=== PATIENT | male | born 1950 | race Caucasian/White ===

== ENCOUNTER 2021-05-24 14:38 | Inpatient (IN) | payer MEDICARE, MEDICAID ==
[~2021-05-24] VITALS: Ht 180.3 cm; Wt 102.7 kg
[~2021-05-24 14:38] MED LIST: ATOR10TA70 PO; CHLO4TAB PO; COR3.125T PO; DILT30TA2 PO; FINA5TAB11 PO; LATA2.5D14 EACHEYE; LISI2.5T14 PO; TERA5CAP4 PO
[2021-05-24 15:34] LABS: BASOPHILS % (AUTO) 0.3 % (0-1); EOSINOPHILS % (AUTO) 0.5 % (0-6); HEMATOCRIT 30.7 % (42.0-52.0); HEMOGLOBIN 10.5 g/dl (14.0-17.9); LYMPHOCYTES # (AUTO) 0.8 X10'3 (1.1-4.8); LYMPHOCYTES % (AUTO) 10.3 % (21-51); MEAN CORPUSCULAR HEMOGLOBIN 32.2 PG (27.0-31.0); MEAN CORPUSCULAR HGB CONC 34.2 g/dL (33.0-36.5); MEAN CORPUSCULAR VOLUME 94.1 FL (78-98); MEAN PLATELET VOLUME 6.9 FL (7.4-10.4); MONOCYTES # (AUTO) 0.7 X10'3 (0-0.9); MONOCYTES % (AUTO) 8.6 % (2-12); NEUTROPHILS # (AUTO) 6.4 X10'3 (1.8-7.7); NEUTROPHILS % (AUTO) 80.3 % (42-75); PLATELET COUNT 395 X10'3 (140-440); RED BLOOD COUNT 3.27 X10'6 (4.70-6.10); RED CELL DISTRIBUTION WIDTH 13.3 % (11.5-14.5)
[2021-05-24 15:35] LABS: ALANINE AMINOTRANSFERASE 38 U/L (12-78); ALBUMIN 2.3 G/DL (3.4-5.0); ALBUMIN/GLOBULIN RATIO 0.5 (1.1-1.5); ALKALINE PHOSPHATASE 93 IU/L (46-116); ANION GAP 12 (8-16); ASPARTATE AMINO TRANSFERASE 31 U/L (10-37); BILIRUBIN,TOTAL 0.6 MG/DL (0.1-1.0); BLOOD UREA NITROGEN 25 MG/DL (7-18); BUN/CREATININE RATIO 13.1 (5.4-32.0); CALCIUM 8.7 MG/DL (8.5-10.1); CHLORIDE 95 MMOL/L (99-107); CREATININE 1.91 MG/DL (0.60-1.10); GLUCOSE 189 MG/DL (70-104); POTASSIUM 4.6 MMOL/L (3.5-5.1); SODIUM 129 MMOL/L (135-145); TOTAL CARBON DIOXIDE 22.1 MMOL/L (24-32); TOTAL PROTEIN 7.3 G/DL (6.4-8.2); eGFR 35 ML/MIN
[2021-05-24] MEDS ORDERED: CARV3.123 PO (19:12)
[2021-05-24] MEDS ORDERED: DILT30TA PO (19:12)
[2021-05-24] MEDS ORDERED: LISI2.5T89 PO (19:12)
[2021-05-24] MEDS ORDERED: TIMO5DRO4 EACHEYE (19:26)
[2021-05-24] MEDS ORDERED: [UNRECOGNIZED DRUG - CODE] PO (19:26)
[2021-05-24] MEDS ORDERED: carVEDilol 3.125mg tablet PO ONE ×2 (20:00→21:30)
[2021-05-24] MEDS ORDERED: carVEDilol 3.125mg tablet PO SCH (20:00)
[2021-05-24] MEDS ORDERED: LIDOcaine 1% W/epiNEPHrine 1:100,000 20ml vial SQ ONE (21:30)
[2021-05-24] MEDS ORDERED: diltiazem 5mg/ml 5ml inj. IV ONE (21:40)
[2021-05-24] MEDS ORDERED: diltiazem SR 60mg capsule (twice daily) PO SCH (21:40)
[2021-05-24] MEDS ORDERED: diltiazem SR 60mg capsule (twice daily) PO ONE (21:40)
[2021-05-24] MEDS ORDERED: diltiazem 30mg tablet PO ONE (21:50)
--- NOTE | 2021-05-24 21:53 | NUR ---
MD at bedside for thoracentesis - see MAR and VS for diltiazem intervention - will CTM
[2021-05-24] MEDS ORDERED: glucagon, human recombinant 1mg kit SUBCUT PRN (23:05)
[2021-05-24] MEDS ORDERED: ondansetron/PF 4mg/2ml inj IV PRN (23:05)
[2021-05-24] MEDS ORDERED: dextrose ORAL solution 15 GM/59 ML bottle PO PRN ×2 (23:05)
[2021-05-24] MEDS ORDERED: acetaminophen 325mg tablet PO PRN (23:05)
[2021-05-24] MEDS ORDERED: magnesium 2GM in 50ml NS 50 ML IV PRN (23:05)
[2021-05-24] MEDS ORDERED: potassium Cl 20 mEq SR tablet PO PRN ×2 (23:05)
[2021-05-24] MEDS ORDERED: dextrose 50%-water 50ml dispensing syringe IV PRN ×2 (23:05)
[2021-05-24] MEDS ORDERED: HYDROcodone/acetaminophen 5mg/325mg tablet PO PRN (23:05)
[2021-05-24] MEDS ORDERED: MESSAGE TO PHARMACY PO ONE (23:05)
[2021-05-24] MEDS ORDERED: potassium CL 10mEq/100ml bag 100 ML IV PRN (23:05)
[2021-05-24] MEDS ORDERED: magnesium 4gm in 100ml NS 100 ML IV PRN (23:05)
[2021-05-24] MEDS ORDERED: magnesium Cl slow-release 64mg tablet PO PRN (23:05)
[2021-05-24] MEDS ORDERED: chlorpheniramine 4mg tablet PO PRN (23:10)
[2021-05-24] MEDS ORDERED: TIMO1DRO8 EACHEYE (23:18)
[2021-05-24 23:21] LABS: BFAPPEAR CLOUDY; LYMPHOCYTES,BODY FLUID 81 %; MONOCYTES,BODY FLUID 5 %; NEUTROPHILS,BODY FLUID 14 %
[2021-05-24 23:22] LABS: BF RBC COUNT 5700 /CU MM; BF WBC COUNT 230 /CU MM (0-1000); BFCOLOR YELLOW; BFVOLUME 80 ML
[2021-05-24] MEDS ORDERED: TYPE IN GENERIC & BRAND NAME OF PATIENT MED STRENGTH & FORM PO PRN (23:30)
[2021-05-24] MEDS: normal saline 1000ml 1,000 ML IV SCH (23:37)
[2021-05-24 23:45] LABS: GLUCOSE,BODY FLUID 108 MG/DL; TOTAL PROTEIN,BODY FLUID 3.3 G/DL
--- NOTE | 2021-05-25 01:50 | NUR ---
discussed with MD patient HR back into 120's. pt is calm and denies pain or SHOB. Will CTM monitor 1 hour to see if oral diltiazem takes over and reasses for possible lopressor need.
[2021-05-25] MEDS ORDERED: metoprolol tartrate 1mg/ml inj IV ONE (03:05)
[2021-05-25 04:03] LABS: BASOPHILS % (AUTO) 0.4 % (0-1); EOSINOPHILS % (AUTO) 0.1 % (0-6); HEMATOCRIT 29.3 % (42.0-52.0); LYMPHOCYTES # (AUTO) 0.8 X10'3 (1.1-4.8); LYMPHOCYTES % (AUTO) 9.4 % (21-51); MEAN CORPUSCULAR HEMOGLOBIN 32.1 PG (27.0-31.0); MEAN CORPUSCULAR HGB CONC 34.1 g/dL (33.0-36.5); MEAN CORPUSCULAR VOLUME 94.2 FL (78-98); MONOCYTES # (AUTO) 0.6 X10'3 (0-0.9); MONOCYTES % (AUTO) 6.9 % (2-12); NEUTROPHILS # (AUTO) 7.5 X10'3 (1.8-7.7); NEUTROPHILS % (AUTO) 83.2 % (42-75); PLATELET COUNT 358 X10'3 (140-440); RED BLOOD COUNT 3.11 X10'6 (4.70-6.10); RED CELL DISTRIBUTION WIDTH 13.2 % (11.5-14.5)
[2021-05-25 04:15] LABS: ALANINE AMINOTRANSFERASE 38 U/L (12-78); ALBUMIN 2.1 G/DL (3.4-5.0); ALBUMIN/GLOBULIN RATIO 0.4 (1.1-1.5); ALKALINE PHOSPHATASE 88 IU/L (46-116); ANION GAP 10 (8-16); ASPARTATE AMINO TRANSFERASE 31 U/L (10-37); BILIRUBIN,TOTAL 0.7 MG/DL (0.1-1.0); BLOOD UREA NITROGEN 27 MG/DL (7-18); BUN/CREATININE RATIO 14.9 (5.4-32.0); CALCIUM 8.8 MG/DL (8.5-10.1); CHLORIDE 98 MMOL/L (99-107); CREATININE 1.81 MG/DL (0.60-1.10); GLUCOSE 142 MG/DL (70-104); POTASSIUM 4.7 MMOL/L (3.5-5.1); SODIUM 131 MMOL/L (135-145); TOTAL CARBON DIOXIDE 23.4 MMOL/L (24-32); TOTAL PROTEIN 6.8 G/DL (6.4-8.2); eGFR 37 ML/MIN
[2021-05-25 04:17] LABS: MAGNESIUM 2.5 MG/DL (1.5-2.4)
[2021-05-25] MEDS ORDERED: diltiazem 30mg tablet PO SCH (08:00)
[2021-05-25] MEDS: K and/or MAG REPLACEMENT MC SCH ×2 (08:00→20:00)
[2021-05-25] MEDS: docusate sod 100mg capsule PO SCH ×2 (08:18→22:16)
[2021-05-25] MEDS: lisinopril 2.5mg tablet PO SCH (08:19)
[2021-05-25] MEDS: carVEDilol 3.125mg tablet PO SCH ×2 (08:19→20:00)
[2021-05-25] MEDS: atorvastatin 10mg tablet PO SCH (08:19)
[2021-05-25] MEDS: finasteride 5mg tablet PO SCH (08:19)
--- NOTE | 2021-05-25 11:39 | NUR ---
SPOKE WITH DR MARIN ABOUT PT BP GIVEN ORDERS FOR 250 BOLUS
--- NOTE | 2021-05-25 12:37 | NUR ---
Patient assisted to sitting position on side of bed. Patient denies needs at this time.
[2021-05-25 15:31] VITALS: BP 103/79
--- NOTE | 2021-05-25 15:39 | NUR ---
PAGER ID: [phone] MESSAGE: mikala canseco [phone] re: [facility]. May pt eat? thank you.
[2021-05-25] MEDS: diltiazem 30mg tablet PO SCH ×2 (16:17→21:00)
--- NOTE | 2021-05-25 18:36 | NUR ---
Problems reprioritized. Patient report given, questions answered & plan of care reviewed with GIOVANNI PORTILLO.
[2021-05-25 20:00] VITALS: BP 98/59
[2021-05-25] MEDS: terazosin 5mg capsule PO SCH (20:00)
[2021-05-25] MEDS: latanoprost 0.005% 2.5ml ophthalmic drops EACHEYE SCH (22:17)
[2021-05-26] MEDS: timolol 0.5% ophthalmic solution 5ml bottle EACHEYE SCH ×4 (00:23→20:47)
--- NOTE | 2021-05-26 01:45 | NUR ---
Informed Dr. Meza of patient's BP being low and HR being in the 120's. Advised to give Carvedilol 3.125mg that was held.
[2021-05-26] MEDS: carVEDilol 3.125mg tablet PO SCH ×3 (01:49→20:47)
[2021-05-26 05:00] VITALS: BP 90/69
[2021-05-26 06:27] LABS: BASOPHILS % (AUTO) 0.4 % (0-1); EOSINOPHILS # (AUTO) 0.2 X10'3 (0-0.9); HEMATOCRIT 31.5 % (42.0-52.0); HEMOGLOBIN 10.5 g/dl (14.0-17.9); LYMPHOCYTES % (AUTO) 11.7 % (21-51); MEAN CORPUSCULAR HEMOGLOBIN 31.9 PG (27.0-31.0); MEAN CORPUSCULAR HGB CONC 33.3 g/dL (33.0-36.5); MEAN CORPUSCULAR VOLUME 95.6 FL (78-98); MEAN PLATELET VOLUME 7.2 FL (7.4-10.4); MONOCYTES # (AUTO) 0.8 X10'3 (0-0.9); MONOCYTES % (AUTO) 9.2 % (2-12); NEUTROPHILS # (AUTO) 6.4 X10'3 (1.8-7.7); NEUTROPHILS % (AUTO) 76.7 % (42-75); PLATELET COUNT 383 X10'3 (140-440); RED BLOOD COUNT 3.29 X10'6 (4.70-6.10); RED CELL DISTRIBUTION WIDTH 13.4 % (11.5-14.5); WHITE BLOOD COUNT 8.4 X10'3 (4.5-11.0)
[2021-05-26 06:36] LABS: ALANINE AMINOTRANSFERASE 48 U/L (12-78); ALBUMIN 2.1 G/DL (3.4-5.0); ALBUMIN/GLOBULIN RATIO 0.4 (1.1-1.5); ALKALINE PHOSPHATASE 93 IU/L (46-116); ANION GAP 13 (8-16); ASPARTATE AMINO TRANSFERASE 41 U/L (10-37); BILIRUBIN,TOTAL 0.6 MG/DL (0.1-1.0); BLOOD UREA NITROGEN 29 MG/DL (7-18); BUN/CREATININE RATIO 16.2 (5.4-32.0); CALCIUM 8.5 MG/DL (8.5-10.1); CHLORIDE 99 MMOL/L (99-107); CREATININE 1.79 MG/DL (0.60-1.10); GLUCOSE 124 MG/DL (70-104); MAGNESIUM 2.4 MG/DL (1.5-2.4); POTASSIUM 4.8 MMOL/L (3.5-5.1); SODIUM 133 MMOL/L (135-145); TOTAL CARBON DIOXIDE 21.5 MMOL/L (24-32); TOTAL PROTEIN 6.8 G/DL (6.4-8.2); eGFR 38 ML/MIN
[2021-05-26 07:00] VITALS: BP 90/56
[2021-05-26] MEDS: lisinopril 2.5mg tablet PO SCH (08:00)
[2021-05-26] MEDS: K and/or MAG REPLACEMENT MC SCH ×2 (08:00→20:00)
[2021-05-26] MEDS: terazosin 5mg capsule PO SCH ×2 (08:00→20:00)
[2021-05-26] MEDS: docusate sod 100mg capsule PO SCH ×2 (08:30→20:47)
[2021-05-26] MEDS: finasteride 5mg tablet PO SCH (08:31)
[2021-05-26] MEDS: atorvastatin 10mg tablet PO SCH (08:34)
[2021-05-26] MEDS: magnesium hydroxide 30ml (MOM) UD suspension PO PRN (08:34)
[2021-05-26] MEDS: diltiazem 30mg tablet PO SCH ×4 (08:35→20:51)
[2021-05-26 11:00] VITALS: BP 89/60
[2021-05-26] MEDS: normal saline 1000ml 1,000 ML IV SCH (17:21)
[2021-05-26] MEDS: latanoprost 0.005% 2.5ml ophthalmic drops EACHEYE SCH (20:47)
[2021-05-27] VITALS (29 sets, daily range): BP systolic 78–105; BP diastolic 46–77
[2021-05-27 07:30] LABS: APTT 29 SECONDS (22-32)
[2021-05-27 07:31] LABS: ALANINE AMINOTRANSFERASE 42 U/L (12-78); ALBUMIN/GLOBULIN RATIO 0.4 (1.1-1.5); ALKALINE PHOSPHATASE 85 IU/L (46-116); ANION GAP 10 (8-16); ASPARTATE AMINO TRANSFERASE 28 U/L (10-37); BILIRUBIN,TOTAL 0.5 MG/DL (0.1-1.0); BLOOD UREA NITROGEN 28 MG/DL (7-18); BUN/CREATININE RATIO 16.2 (5.4-32.0); CALCIUM 8.6 MG/DL (8.5-10.1); CHLORIDE 102 MMOL/L (99-107); CREATININE 1.73 MG/DL (0.60-1.10); GLUCOSE 120 MG/DL (70-104); MAGNESIUM 2.5 MG/DL (1.5-2.4); POTASSIUM 4.3 MMOL/L (3.5-5.1); SODIUM 136 MMOL/L (135-145); TOTAL CARBON DIOXIDE 24.2 MMOL/L (24-32); TOTAL PROTEIN 6.5 G/DL (6.4-8.2); eGFR 39 ML/MIN
[2021-05-27 07:49] LABS: BASOPHILS % (AUTO) 0.6 % (0-1); EOSINOPHILS # (AUTO) 0.2 X10'3 (0-0.9); EOSINOPHILS % (AUTO) 2.8 % (0-6); HEMATOCRIT 29.5 % (42.0-52.0); HEMOGLOBIN 9.8 g/dl (14.0-17.9); LYMPHOCYTES # (AUTO) 0.8 X10'3 (1.1-4.8); LYMPHOCYTES % (AUTO) 11.3 % (21-51); MEAN CORPUSCULAR HEMOGLOBIN 31.7 PG (27.0-31.0); MEAN CORPUSCULAR HGB CONC 33.4 g/dL (33.0-36.5); MEAN PLATELET VOLUME 7.3 FL (7.4-10.4); MONOCYTES # (AUTO) 0.6 X10'3 (0-0.9); MONOCYTES % (AUTO) 8.3 % (2-12); NEUTROPHILS # (AUTO) 5.7 X10'3 (1.8-7.7); PLATELET COUNT 366 X10'3 (140-440); RED CELL DISTRIBUTION WIDTH 13.4 % (11.5-14.5); WHITE BLOOD COUNT 7.4 X10'3 (4.5-11.0)
[2021-05-27] MEDS: carVEDilol 3.125mg tablet PO SCH ×2 (08:00→17:14)
[2021-05-27] MEDS: lisinopril 2.5mg tablet PO SCH (08:00)
[2021-05-27] MEDS: K and/or MAG REPLACEMENT MC SCH ×2 (08:00→19:27)
[2021-05-27] MEDS: terazosin 5mg capsule PO SCH ×2 (09:05→20:30)
[2021-05-27] MEDS: atorvastatin 10mg tablet PO SCH (09:11)
[2021-05-27] MEDS: docusate sod 100mg capsule PO SCH ×2 (09:12→20:30)
[2021-05-27] MEDS: timolol 0.5% ophthalmic solution 5ml bottle EACHEYE SCH ×2 (09:12→21:27)
[2021-05-27] MEDS: finasteride 5mg tablet PO SCH (09:12)
[2021-05-27] MEDS: diltiazem 30mg tablet PO SCH ×4 (09:13→21:00)
[2021-05-27] MEDS ORDERED: neostigmine methylsulfate 1 MG/ML 10ml vial ONE (13:10)
[2021-05-27] MEDS ORDERED: sevoflurane 250ml liquid IH ONE (13:10)
[2021-05-27] MEDS ORDERED: glycopyrrolate 0.2mg/ml inj ONE (13:10)
[2021-05-27] MEDS ORDERED: midazolam 1 mg/ML 2ml injection ONE (13:22)
[2021-05-27] MEDS ORDERED: fentaNYL /PF 50mcg/ml 5ml ampule ONE (13:35)
[2021-05-27] MEDS ORDERED: propofol inj 20 ML IV ONE (13:42)
[2021-05-27] MEDS ORDERED: LIDOcaine 2% (20mg/ml) 5ml vial ONE (13:42)
[2021-05-27] MEDS ORDERED: CISatracurium **Bolus** 2 mg/ml inj IV ONE (14:28)
[2021-05-27] MEDS ORDERED: rocuronium 10mg/ml inj IV ONE (14:43)
[2021-05-27] MEDS ORDERED: BUPIVAcaine/PF 2.5 mg/ml (0.25%) 30ml vial ONE (15:08)
[2021-05-27] MEDS ORDERED: HYDROcodone/acetaminophen 10/325mg tab PO PRN (15:35)
[2021-05-27] MEDS ORDERED: albuterol 2.5 MG/3 ML nebule NEB PRN (15:35)
[2021-05-27] MEDS ORDERED: morphine 2 MG/ML inj. syringe IV PRN (15:35)
[2021-05-27] MEDS ORDERED: CADD PCA waste documentation MC PRN (15:35)
[2021-05-27] MEDS ORDERED: HYDROmorphone inj. 0.5 MG/0.5 ML DISP.SYRIN IV PRN (15:35)
[2021-05-27] MEDS ORDERED: metoclopramide 5 mg/ml inj IV PRN (15:35)
[2021-05-27] MEDS ORDERED: ondansetron/PF 4mg/2ml inj IV PRN (15:35)
[2021-05-27] MEDS ORDERED: naloxone 0.4 mg/ml inj IV PRN (15:35)
[2021-05-27] MEDS ORDERED: morphine 4 MG/ML inj SYRINge IV PRN (15:35)
--- NOTE | 2021-05-27 15:51 | NUR ---
Received from OR via BED IN STABLE CONDITION , accompanied by Anesthesiologist and RAILROAD INSPECTOR report given by RAILROAD INSPECTOR AND Anesthesiolgist. Addendum: 05/27/21 at 1730 by Paz Whitlock RN Amended: Links added.
[2021-05-27] MEDS: ceFAZolin inj. 1,000 MG in dextrose 5%-water 50ml 50 ML IV SCH ×2 (16:00→23:55)
[2021-05-27] MEDS ORDERED: acetaminophen 1,000mg/100ml IV 100 ML IV ONE (16:25)
[2021-05-27 16:46] LABS: ABG OXYGEN SATURATION 89.6 % (94-97); ABG PCO2 (T) 33.8 mmHg (35.0-48.0); FCOHb 0.3 % (0.0-3.9); FLOW 4 L/min; FMetHb 0.2 % (0.0-1.5); FO2Hb 89.2 % (94-97); PATIENT TEMPERATURE 36.1; TOTAL HEMOGLOBIN 9.6 G/dl (14.0-18.0)
[2021-05-27] MEDS ORDERED: albumin (Human) 5% 250ml 250 ML IV ONE ×3 (17:10→19:00)
[2021-05-27] MEDS ORDERED: metoprolol tartrate 1mg/ml inj IV ONE (17:10)
--- NOTE | 2021-05-27 17:59 | NUR ---
BANDAR 2MG PER DR. GREENE Addendum: 05/27/21 at 1805 by Paz Whitlock RN Amended: Links added.
[2021-05-27] MEDS ORDERED: albumin (Human) 5% 250ml 250 ML IV STA (19:01)
--- NOTE | 2021-05-27 20:01 | NUR ---
PATIENT DISCHARGED FROM PACU IN STABLE CONDITION AFTER REPORT GIVEN TO JESSE PORTILLO. PATIENT TRANSPORTED ON MONITOR TO ROOM 313 VIA BED WITH BANDAR X2. Addendum: 05/27/21 at 2026 by Paz Whitlock RN Amended: Links added.
--- NOTE | 2021-05-27 20:30 | NUR ---
PT JUST BACK FROM RECOVERY ROOM, PT RESTING COMFORTABLY WITH NEW LEFT LATERAL CHEST TUBE.
[2021-05-27] MEDS: latanoprost 0.005% 2.5ml ophthalmic drops EACHEYE SCH (21:00)
[2021-05-27] MEDS: gabapentin 300mg capsule PO SCH (21:27)
[2021-05-28 02:00] VITALS: BP 88/62
[2021-05-28] MEDS: diltiazem 30mg tablet PO SCH ×3 (04:56→17:15)
--- NOTE | 2021-05-28 06:00 | NUR ---
Problems reprioritized. Patient report given, questions answered & plan of care reviewed with Guilherme. Addendum: 05/28/21 at 0704 by Ej Cespedes RN Amended: Links added.
[2021-05-28 06:15] LABS: BASOPHILS % (AUTO) 0.1 % (0-1); EOSINOPHILS % (AUTO) 0.1 % (0-6); HEMATOCRIT 24.9 % (42.0-52.0); HEMOGLOBIN 8.3 g/dl (14.0-17.9); LYMPHOCYTES # (AUTO) 0.6 X10'3 (1.1-4.8); LYMPHOCYTES % (AUTO) 6.8 % (21-51); MEAN CORPUSCULAR HEMOGLOBIN 31.7 PG (27.0-31.0); MEAN CORPUSCULAR HGB CONC 33.4 g/dL (33.0-36.5); MEAN PLATELET VOLUME 7.5 FL (7.4-10.4); MONOCYTES # (AUTO) 0.4 X10'3 (0-0.9); MONOCYTES % (AUTO) 5.1 % (2-12); NEUTROPHILS # (AUTO) 7.4 X10'3 (1.8-7.7); NEUTROPHILS % (AUTO) 87.9 % (42-75); PLATELET COUNT 275 X10'3 (140-440); RED BLOOD COUNT 2.63 X10'6 (4.70-6.10); RED CELL DISTRIBUTION WIDTH 13.2 % (11.5-14.5); WHITE BLOOD COUNT 8.4 X10'3 (4.5-11.0)
[2021-05-28 06:33] LABS: ALANINE AMINOTRANSFERASE 26 U/L (12-78); ALBUMIN 2.3 G/DL (3.4-5.0); ALBUMIN/GLOBULIN RATIO 0.7 (1.1-1.5); ALKALINE PHOSPHATASE 69 IU/L (46-116); ANION GAP 10 (8-16); ASPARTATE AMINO TRANSFERASE 20 U/L (10-37); BILIRUBIN,TOTAL 0.6 MG/DL (0.1-1.0); BLOOD UREA NITROGEN 25 MG/DL (7-18); BUN/CREATININE RATIO 16.6 (5.4-32.0); CALCIUM 8.1 MG/DL (8.5-10.1); CHLORIDE 104 MMOL/L (99-107); CREATININE 1.51 MG/DL (0.60-1.10); GLUCOSE 113 MG/DL (70-104); MAGNESIUM 2.2 MG/DL (1.5-2.4); POTASSIUM 4.5 MMOL/L (3.5-5.1); SODIUM 135 MMOL/L (135-145); TOTAL CARBON DIOXIDE 21.5 MMOL/L (24-32); TOTAL PROTEIN 5.8 G/DL (6.4-8.2); eGFR 46 ML/MIN
[2021-05-28] MEDS: carVEDilol 3.125mg tablet PO SCH ×2 (07:35→20:00)
[2021-05-28] MEDS: docusate sod 100mg capsule PO SCH ×2 (07:35→19:52)
[2021-05-28] MEDS: atorvastatin 10mg tablet PO SCH (07:35)
[2021-05-28] MEDS: gabapentin 300mg capsule PO SCH ×2 (07:35→19:52)
[2021-05-28] MEDS: terazosin 5mg capsule PO SCH ×2 (07:38→20:00)
[2021-05-28] MEDS: finasteride 5mg tablet PO SCH (07:38)
[2021-05-28] MEDS: lisinopril 2.5mg tablet PO SCH (07:38)
[2021-05-28] MEDS: timolol 0.5% ophthalmic solution 5ml bottle EACHEYE SCH ×2 (07:39→19:53)
[2021-05-28] MEDS: benzocaine/menthol oral lozeng 1 EACH BOX MM PRN ×2 (07:40→12:00)
[2021-05-28 07:42] VITALS: BP 86/59
[2021-05-28] MEDS: K and/or MAG REPLACEMENT MC SCH ×2 (08:00→20:00)
[2021-05-28 11:12] VITALS: BP 95/61
[2021-05-28] MEDS: HYDROcodone/acetaminophen 10/325mg tab PO PRN (12:00)
[2021-05-28 17:03] VITALS: BP 104/71
[2021-05-28 19:30] VITALS: BP 96/59
[2021-05-28 22:00] VITALS: BP 98/60
[2021-05-28] MEDS: latanoprost 0.005% 2.5ml ophthalmic drops EACHEYE SCH (22:09)
[2021-05-28] MEDS: normal saline 1000ml 1,000 ML IV SCH (23:05)
[2021-05-29] VITALS (8 sets, daily range): BP systolic 73–115; BP diastolic 46–66
[2021-05-29 06:58] LABS: BASOPHILS % (AUTO) 0.3 % (0-1); EOSINOPHILS # (AUTO) 0.2 X10'3 (0-0.9); EOSINOPHILS % (AUTO) 1.7 % (0-6); HEMATOCRIT 29.5 % (42.0-52.0); HEMOGLOBIN 9.8 g/dl (14.0-17.9); LYMPHOCYTES # (AUTO) 0.6 X10'3 (1.1-4.8); LYMPHOCYTES % (AUTO) 6.7 % (21-51); MEAN CORPUSCULAR HEMOGLOBIN 32.1 PG (27.0-31.0); MEAN CORPUSCULAR HGB CONC 33.4 g/dL (33.0-36.5); MEAN CORPUSCULAR VOLUME 96.1 FL (78-98); MEAN PLATELET VOLUME 7.2 FL (7.4-10.4); MONOCYTES # (AUTO) 0.7 X10'3 (0-0.9); MONOCYTES % (AUTO) 7.8 % (2-12); NEUTROPHILS # (AUTO) 7.7 X10'3 (1.8-7.7); NEUTROPHILS % (AUTO) 83.5 % (42-75); PLATELET COUNT 303 X10'3 (140-440); RED BLOOD COUNT 3.07 X10'6 (4.70-6.10); RED CELL DISTRIBUTION WIDTH 13.6 % (11.5-14.5); WHITE BLOOD COUNT 9.2 X10'3 (4.5-11.0)
[2021-05-29 07:44] LABS: ALANINE AMINOTRANSFERASE 28 U/L (12-78); ALBUMIN 2.2 G/DL (3.4-5.0); ALBUMIN/GLOBULIN RATIO 0.6 (1.1-1.5); ALKALINE PHOSPHATASE 77 IU/L (46-116); ANION GAP 11 (8-16); ASPARTATE AMINO TRANSFERASE 19 U/L (10-37); BILIRUBIN,TOTAL 0.5 MG/DL (0.1-1.0); BLOOD UREA NITROGEN 30 MG/DL (7-18); BUN/CREATININE RATIO 18.2 (5.4-32.0); CALCIUM 8.5 MG/DL (8.5-10.1); CHLORIDE 101 MMOL/L (99-107); CREATININE 1.65 MG/DL (0.60-1.10); GLUCOSE 130 MG/DL (70-104); POTASSIUM 4.7 MMOL/L (3.5-5.1); SODIUM 131 MMOL/L (135-145); TOTAL PROTEIN 6.1 G/DL (6.4-8.2); eGFR 42 ML/MIN
--- NOTE | 2021-05-29 07:44 | NUR ---
Patient in room MED 313. I have received report from Mireya RN and had the opportunity to ask questions and assume patient care.
[2021-05-29] MEDS: K and/or MAG REPLACEMENT MC SCH ×2 (08:00→20:00)
[2021-05-29] MEDS: gabapentin 300mg capsule PO SCH (08:16)
[2021-05-29] MEDS: finasteride 5mg tablet PO SCH (08:16)
[2021-05-29] MEDS: docusate sod 100mg capsule PO SCH ×2 (08:17→19:32)
[2021-05-29] MEDS: timolol 0.5% ophthalmic solution 5ml bottle EACHEYE SCH ×2 (08:17→19:30)
[2021-05-29] MEDS: lisinopril 2.5mg tablet PO SCH (08:17)
[2021-05-29] MEDS: diltiazem 30mg tablet PO SCH ×2 (08:17→19:31)
[2021-05-29] MEDS: carVEDilol 3.125mg tablet PO SCH ×2 (08:17→19:31)
[2021-05-29] MEDS: terazosin 5mg capsule PO SCH (08:17)
[2021-05-29] MEDS: atorvastatin 10mg tablet PO SCH (08:17)
--- NOTE | 2021-05-29 08:54 | NUR ---
Initial: Pt admitted w/ recurrent pleural effusions w/ multiple thoracentesis per EMR. Pt underwent thorascopic exploration 05/27 w/ chest tube placed. Pt has been placed on CCHO diet since 05/28 w/ avg 50% intake since diet advancement. LBM 05/26 receiving routine colace. Noted A1C 6.4 earlier this month, DM ed not warranted at this time. Will continue to closely monitor PO trends and make recommendations as appropriate. Recs: 1. Continue CCHO diet as tolerated 2. Monitor need for ONS pending further PO 3. Bowel care per rx 4. Scaled wt this admit, subsequent weekly wts Addendum: 05/29/21 at [address] Amended: Links added.
[2021-05-29] MEDS: normal saline 1000ml 1,000 ML IV SCH (09:04)
[2021-05-29] MEDS ORDERED: normal saline 250ml IV soln 250 ML IV ONE (11:20)
--- NOTE | 2021-05-29 12:19 | NUR ---
PAGER ID: [phone] MESSAGE: Sandra [phone] Re: Tavon BP manual 84/58 post 250 bolus. Please call patient wants pain meds can I order Tylenol for him
--- NOTE | 2021-05-29 13:10 | NUR ---
PAGER ID: [phone] MESSAGE: Blanca KIRBY [phone] Re: Tavon 313 BP still please call patient asymptomatic
[2021-05-29] MEDS ORDERED: albumin (Human) 5% 250ml 250 ML IV ONE ×2 (14:15→22:20)
--- NOTE | 2021-05-29 16:10 | NUR ---
PAGER ID: [phone] MESSAGE: Sandra [phone] Re: Tavon 313 Patients current vitals HR 135 ST w/ PVC, BP 91/58
[2021-05-29] MEDS ORDERED: acetaminophen 325mg tablet PO PRN (17:05)
--- NOTE | 2021-05-29 17:06 | NUR ---
PAGER ID: [phone] MESSAGE: Sandra [phone] Re: Tavon 313 HR still staying at 137 BP 90/60, Please call re: HR
--- NOTE | 2021-05-29 17:17 | NUR ---
PAGER ID: [phone] MESSAGE: Sandra [phone] [address] per Bjorn in Tele office patient is actually Aflutter Received orders from DR Loera to start patient on Amiodarone with a bolus and a drip per protocol and start patient on Eliquis 5mg PO BID ( per Dr Loera contact Dr Ruth and make sure he is ok with the Eliquis orders)
[2021-05-29] MEDS ORDERED: amiodarone 150mg/dext, iso-os 100 ML IV ONE (17:20)
[2021-05-29] MEDS ORDERED: amiodarone/D5 360MG/200ML BAG 200 ML IV SCH (17:20)
--- NOTE | 2021-05-29 17:22 | NUR ---
Left message on Dr Ruth cell v/m to call re: new orders for Eliquis that Dr Loera wants to start on patient who is Aflutter with a history of Afib. Orders in and waiting confirmation from Dr Ruth before auto clutch rebuilder starts medication.
--- NOTE | 2021-05-29 18:14 | NUR ---
Problems reprioritized. Patient report given, questions answered & plan of care reviewed with Tyrese PORTILLO he is aware that patients Amiodarone gtt was started at 1800 and that we are waiting for a call back from Dr Ruth if he is ok starting patient on Eliquis.
--- NOTE | 2021-05-29 18:15 | NUR ---
Tried to call Dr Ruth again at [phone] goes to ИРИНА moreno RN is aware to hold Eliquis until approved by Dr Ruth. Addendum: 05/29/21 at 1823 by Blanca Styles RN Dr Ruth called back stated he would like to wait to start patient on Eliquis due to patient having a pigtail catheter placed tomorrow. Placed hold on medication Dr Loera also advised. Addendum: 05/29/21 at 1826 by Blanca Styles RN Tyrese PORTILLO aware of above information.
--- NOTE | 2021-05-29 18:26 | NUR ---
PAGER ID: [phone] MESSAGE: Sandra [facility] Per Dr Ruth patient having a pigtail catheter placed tomorrow by Angio would like to hold off on Eliquis. Placed hold on medication until MD wants to start.
[2021-05-29] MEDS: latanoprost 0.005% 2.5ml ophthalmic drops EACHEYE SCH (20:21)
[2021-05-29] MEDS ORDERED: DOPamine 400mg/D5W 250ml 250 ML IV SCH (22:25)
[2021-05-29] MEDS ORDERED: normal saline 500ML IV soln IV ONE (22:30)
[2021-05-30] VITALS (16 sets, daily range): BP systolic 88–119; BP diastolic 62–90
[2021-05-30] MEDS ORDERED: amiodarone/D5 360MG/200ML BAG 200 ML IV SCH (00:55)
[2021-05-30] MEDS ORDERED: methylPREDNISolone sod succ 125mg/2ml vial IV ONE (01:20)
[2021-05-30] MEDS: hydrocortisone sod succ/PF 100mg/2ml inj. IV ONE ×2 (01:25→02:09)
--- NOTE | 2021-05-30 05:16 | NUR ---
Patient very unstable physiologically during the shift. Though alert and responsive, denied respiratory and physical distress throughout the shift, but blood pressure was low, mostly in the 80s systolic, and at one time in the 70s. MD Browning notified. Bolus NS twice was ordered and carried out, but BP still with little improvement. MD ordered to stop Amiodarone, as the heart rate was in the 80s at that time. Also ordered Albumen one time 250lk, and then Dopamine. Once the heart rate started to go up, and reached upwards of 135, notified and ordered Dopamine stopped, and to start Levophed, as BP was still in the 70s. Notified patient has to be transferred to the ICU if Levophed has to be administered. Instead ordered Solumedrol 250mg one time, which he eventually ordered to not give, then Hydrocortisone 100mg, and he ordered to not give that as well. Nursing aerosol supervisor notified, and was at bedside to see patient. BP was in the 90s at then, and has maintained in the 90s till now, with heart rate in the 120s. made aware.
--- NOTE | 2021-05-30 07:23 | NUR ---
RE: Anand [facility] room 313 Pt has been hypotensive all night and rapid HR. Many meds were tried. Pt on no drips now. HR 130's BP now 92/66 afib/aflutter. Pt asymptomatic. Suggestions? Clay PORTILLO [phone]
[2021-05-30] MEDS: carVEDilol 3.125mg tablet PO SCH (08:00)
[2021-05-30] MEDS: K and/or MAG REPLACEMENT MC SCH ×2 (08:00→19:40)
[2021-05-30] MEDS: diltiazem 30mg tablet PO SCH (08:00)
[2021-05-30] MEDS: docusate sod 100mg capsule PO SCH ×2 (08:24→19:38)
[2021-05-30] MEDS: atorvastatin 10mg tablet PO SCH (08:24)
[2021-05-30] MEDS: finasteride 5mg tablet PO SCH (08:24)
[2021-05-30] MEDS: timolol 0.5% ophthalmic solution 5ml bottle EACHEYE SCH ×2 (08:25→19:45)
[2021-05-30] MEDS ORDERED: amiodarone 200mg tablet PO SCH (09:05)
--- NOTE | 2021-05-30 09:52 | NUR ---
PAGER ID: [phone] MESSAGE: Re: aTvon Anand room 313 Increase in left lateral subcutaneous emphysema since yesterday left pneumo same. radiologist called report Clay PORTILLO [phone]
[2021-05-30] MEDS ORDERED: LIDOcaine 1% (10mg/ml) 2ml vial ONE (11:11)
[2021-05-30] MEDS ORDERED: midazolam 1 mg/ML 2ml injection ONE (11:11)
[2021-05-30] MEDS ORDERED: fentaNYL/PF 50MCG/1 ML 2ML syringe ONE (11:11)
[2021-05-30] MEDS ORDERED: amiodarone 150mg/dext, iso-os 100 ML IV ONE (13:10)
[2021-05-30] MEDS ORDERED: ondansetron 4mg rapidly disintigrating tab PO PRN (14:05)
[2021-05-30] MEDS: amiodarone/D5 360MG/200ML BAG 200 ML IV SCH ×2 (14:23→19:35)
[2021-05-30] MEDS: HYDROcodone/acetaminophen 10/325mg tab PO PRN (16:13)
[2021-05-30] MEDS: insulin Lispro (HumaLOG) vial - multi-dose SQ SCH (19:37)
[2021-05-30] MEDS: apixaban 5mg tablet PO SCH (19:37)
[2021-05-30] MEDS: latanoprost 0.005% 2.5ml ophthalmic drops EACHEYE SCH (19:45)
[2021-05-31 02:00] VITALS: BP 99/68
[2021-05-31] MEDS ORDERED: CALCIUM GLUC 1gm/50ml NACL,iso 50 ML IV PRN (05:50)
[2021-05-31] MEDS ORDERED: sodium polystyrene sulfonate 15gm/60ml oral suspension PO ONE (05:50)
[2021-05-31] MEDS ORDERED: calcium chloride 100 MG/1 ML inj IV ONE (05:50)
[2021-05-31] MEDS ORDERED: insulin regular, human 10 units/0.1 ml syringe IV ONE (05:50)
[2021-05-31] MEDS ORDERED: sodium bicarbonate (8.4%) 1 mEq/ml syringe IV ONE (05:50)
[2021-05-31] MEDS ORDERED: dextrose 50%-water 50ml dispensing syringe IV ONE (05:50)
[2021-05-31 06:00] VITALS: BP 100/67
[2021-05-31] MEDS: amiodarone/D5 360MG/200ML BAG 200 ML IV SCH (06:39)
--- NOTE | 2021-05-31 06:39 | NUR ---
Patient in room MED 313. I have received report from BANDAR Youssef and had the opportunity to ask questions and assume patient care.
--- NOTE | 2021-05-31 07:09 | NUR ---
Problems reprioritized. Patient report given, questions answered & plan of care reviewed with MAICOL PORTILLO.
[2021-05-31] MEDS: atorvastatin 10mg tablet PO SCH (07:50)
[2021-05-31] MEDS: docusate sod 100mg capsule PO SCH ×2 (07:50→19:55)
[2021-05-31] MEDS: timolol 0.5% ophthalmic solution 5ml bottle EACHEYE SCH ×2 (07:50→19:55)
[2021-05-31] MEDS: finasteride 5mg tablet PO SCH (07:51)
[2021-05-31] MEDS: K and/or MAG REPLACEMENT MC SCH ×2 (08:00→19:01)
[2021-05-31 10:00] VITALS: BP 104/80
[2021-05-31] MEDS: amiodarone 200mg tablet PO SCH ×2 (12:36→19:55)
--- NOTE | 2021-05-31 13:21 | NUR ---
Reassessment: PO intake has significantly improved, documented with 75-100% PO intake since breakfast 05/30. Recommend advancing to regular diet with physician approval in view of A1c 6.4% with BG levels fairly well controlled throughout LOS. [facility] 05/30. No nutrition intervention implemented at this time. Will continue to follow. Recommendations: 1. Continue CHO controlled diet; consider liberalizing to regular diet in view of A1c 6.4% with BG levels fairly well controlled throughout LOS 2. Routine bowel care 3. Scaled wt this admit, subsequent weekly wts Addendum: 05/31/21 at [address] Amended: Links added.
[2021-05-31 15:00] VITALS: BP 93/54
[2021-05-31] MEDS: HYDROcodone/acetaminophen 10/325mg tab PO PRN (17:25)
[2021-05-31 18:00] VITALS: BP 93/62
[2021-05-31] MEDS: latanoprost 0.005% 2.5ml ophthalmic drops EACHEYE SCH (19:56)
[2021-05-31 22:00] VITALS: BP 100/63
[2021-05-31] MEDS: mag hydrox/Alum hydrox/simeth 30ml oral suspension PO PRN (23:06)
[2021-05-31] MEDS: benzocaine/menthol oral lozeng 1 EACH BOX MM PRN (23:09)
[2021-06-01 02:00] VITALS: BP 103/63
[2021-06-01 06:00] VITALS: BP 103/63
[2021-06-01] MEDS: mag hydrox/Alum hydrox/simeth 30ml oral suspension PO PRN ×2 (06:05→21:19)
[2021-06-01] MEDS: K and/or MAG REPLACEMENT MC SCH ×3 (08:00→20:00)
[2021-06-01] MEDS: finasteride 5mg tablet PO SCH (08:24)
[2021-06-01] MEDS: docusate sod 100mg capsule PO SCH ×2 (08:24→19:50)
[2021-06-01] MEDS: atorvastatin 10mg tablet PO SCH (08:24)
[2021-06-01] MEDS: apixaban 5mg tablet PO SCH ×2 (08:24→19:56)
[2021-06-01] MEDS: timolol 0.5% ophthalmic solution 5ml bottle EACHEYE SCH ×2 (08:25→19:49)
[2021-06-01] MEDS: amiodarone 200mg tablet PO SCH ×2 (08:32→19:51)
--- NOTE | 2021-06-01 09:29 | NUR ---
DM consult: Pt with T2DM, well controlled with A1c 6.4%, DM education not warranted at this time. Will continue to follow. Addendum: 06/01/21 at [address] Amended: Links added.
[2021-06-01] MEDS ORDERED: FLU VACC QS2021-22(6MOS UP)/PF 60 MCG/0.5 ML SYRINGE IM ONE (10:00)
[2021-06-01] MEDS: HYDROcodone/acetaminophen 10/325mg tab PO PRN ×2 (10:31→22:45)
[2021-06-01 11:00] VITALS: BP 93/54
[2021-06-01 15:00] VITALS: BP 96/67
[2021-06-01] MEDS ORDERED: potassium Cl 20 mEq SR tablet PO PRN ×2 (17:50)
[2021-06-01] MEDS ORDERED: magnesium Cl slow-release 64mg tablet PO PRN (17:50)
[2021-06-01] MEDS ORDERED: potassium Cl 40MEQ/1/2NS 520ml 520 ML IV PRN (17:50)
[2021-06-01] MEDS ORDERED: magnesium 4gm in 100ml NS 100 ML IV PRN (17:50)
[2021-06-01] MEDS ORDERED: potassium CL 10mEq/100ml bag 100 ML IV PRN (17:55)
[2021-06-01 18:00] VITALS: BP 106/70
[2021-06-01] MEDS: latanoprost 0.005% 2.5ml ophthalmic drops EACHEYE SCH (19:49)
[2021-06-01 22:00] VITALS: BP 100/61
[2021-06-02 02:00] VITALS: BP 99/47
[2021-06-02] MEDS: mag hydrox/Alum hydrox/simeth 30ml oral suspension PO PRN ×2 (03:49→11:29)
--- NOTE | 2021-06-02 05:13 | NUR ---
tried to fix eMAR with administration of lozenges - gave 1 priti at 2100 on 06/01/21. did not give at any other time.
[2021-06-02 07:24] VITALS: BP 109/65
[2021-06-02] MEDS: finasteride 5mg tablet PO SCH (07:26)
[2021-06-02] MEDS: amiodarone 200mg tablet PO SCH ×2 (07:26→20:34)
[2021-06-02] MEDS: apixaban 5mg tablet PO SCH ×2 (07:26→20:34)
[2021-06-02] MEDS: timolol 0.5% ophthalmic solution 5ml bottle EACHEYE SCH ×2 (07:27→20:34)
[2021-06-02] MEDS: atorvastatin 10mg tablet PO SCH (07:27)
[2021-06-02] MEDS: docusate sod 100mg capsule PO SCH ×2 (07:27→20:34)
[2021-06-02 07:33] LABS: BASOPHILS % (AUTO) 0.2 % (0-1); EOSINOPHILS # (AUTO) 0.1 X10'3 (0-0.9); EOSINOPHILS % (AUTO) 1.4 % (0-6); HEMATOCRIT 31.5 % (42.0-52.0); HEMOGLOBIN 10.5 g/dl (14.0-17.9); LYMPHOCYTES # (AUTO) 0.7 X10'3 (1.1-4.8); LYMPHOCYTES % (AUTO) 8.2 % (21-51); MEAN CORPUSCULAR HEMOGLOBIN 31.2 PG (27.0-31.0); MEAN CORPUSCULAR HGB CONC 33.1 g/dL (33.0-36.5); MEAN PLATELET VOLUME 7.6 FL (7.4-10.4); MONOCYTES # (AUTO) 0.7 X10'3 (0-0.9); MONOCYTES % (AUTO) 8.2 % (2-12); NEUTROPHILS # (AUTO) 6.9 X10'3 (1.8-7.7); PLATELET COUNT 337 X10'3 (140-440); RED BLOOD COUNT 3.35 X10'6 (4.70-6.10); RED CELL DISTRIBUTION WIDTH 13.9 % (11.5-14.5); WHITE BLOOD COUNT 8.4 X10'3 (4.5-11.0)
[2021-06-02 07:58] LABS: ALANINE AMINOTRANSFERASE 33 U/L (12-78); ALBUMIN/GLOBULIN RATIO 0.5 (1.1-1.5); ALKALINE PHOSPHATASE 99 IU/L (46-116); ANION GAP 9 (8-16); ASPARTATE AMINO TRANSFERASE 23 U/L (10-37); BILIRUBIN,TOTAL 0.7 MG/DL (0.1-1.0); BLOOD UREA NITROGEN 26 MG/DL (7-18); BUN/CREATININE RATIO 16.4 (5.4-32.0); CALCIUM 8.8 MG/DL (8.5-10.1); CHLORIDE 100 MMOL/L (99-107); CREATININE 1.59 MG/DL (0.60-1.10); GLUCOSE 119 MG/DL (70-104); MAGNESIUM 2.1 MG/DL (1.5-2.4); PHOSPHORUS 2.8 MG/DL (2.3-4.5); POTASSIUM 4.4 MMOL/L (3.5-5.1); SODIUM 132 MMOL/L (135-145); TOTAL CARBON DIOXIDE 22.6 MMOL/L (24-32); TOTAL PROTEIN 6.1 G/DL (6.4-8.2); eGFR 44 ML/MIN
[2021-06-02] MEDS: K and/or MAG REPLACEMENT MC SCH ×4 (08:00→18:51)
[2021-06-02 12:41] VITALS: BP 102/58
[2021-06-02] MEDS: HYDROcodone/acetaminophen 10/325mg tab PO PRN ×2 (13:47→20:35)
[2021-06-02 18:00] VITALS: BP 105/68
[2021-06-02] MEDS: benzocaine/menthol oral lozeng 1 EACH BOX MM PRN (20:34)
[2021-06-02] MEDS: latanoprost 0.005% 2.5ml ophthalmic drops EACHEYE SCH (20:35)
[2021-06-02 22:00] VITALS: BP 89/57
[2021-06-03] VITALS (7 sets, daily range): BP systolic 74–132; BP diastolic 33–67
[2021-06-03 06:57] LABS: BASOPHILS % (AUTO) 0.2 % (0-1); EOSINOPHILS # (AUTO) 0.1 X10'3 (0-0.9); EOSINOPHILS % (AUTO) 1.8 % (0-6); HEMATOCRIT 28.2 % (42.0-52.0); HEMOGLOBIN 9.6 g/dl (14.0-17.9); LYMPHOCYTES # (AUTO) 0.7 X10'3 (1.1-4.8); LYMPHOCYTES % (AUTO) 9.9 % (21-51); MEAN CORPUSCULAR HEMOGLOBIN 31.7 PG (27.0-31.0); MEAN CORPUSCULAR VOLUME 93.2 FL (78-98); MEAN PLATELET VOLUME 7.1 FL (7.4-10.4); MONOCYTES # (AUTO) 0.7 X10'3 (0-0.9); MONOCYTES % (AUTO) 9.7 % (2-12); NEUTROPHILS # (AUTO) 5.8 X10'3 (1.8-7.7); NEUTROPHILS % (AUTO) 78.4 % (42-75); PLATELET COUNT 339 X10'3 (140-440); RED BLOOD COUNT 3.03 X10'6 (4.70-6.10); RED CELL DISTRIBUTION WIDTH 13.7 % (11.5-14.5); WHITE BLOOD COUNT 7.4 X10'3 (4.5-11.0)
[2021-06-03 07:34] LABS: ALANINE AMINOTRANSFERASE 40 U/L (12-78); ALBUMIN 1.8 G/DL (3.4-5.0); ALBUMIN/GLOBULIN RATIO 0.5 (1.1-1.5); ALKALINE PHOSPHATASE 92 IU/L (46-116); ANION GAP 9 (8-16); ASPARTATE AMINO TRANSFERASE 30 U/L (10-37); BILIRUBIN,TOTAL 0.6 MG/DL (0.1-1.0); BLOOD UREA NITROGEN 27 MG/DL (7-18); BUN/CREATININE RATIO 17.8 (5.4-32.0); CALCIUM 8.7 MG/DL (8.5-10.1); CHLORIDE 101 MMOL/L (99-107); CREATININE 1.52 MG/DL (0.60-1.10); GLUCOSE 116 MG/DL (70-104); MAGNESIUM 2.3 MG/DL (1.5-2.4); PHOSPHORUS 3.3 MG/DL (2.3-4.5); POTASSIUM 4.6 MMOL/L (3.5-5.1); SODIUM 132 MMOL/L (135-145); TOTAL CARBON DIOXIDE 21.8 MMOL/L (24-32); TOTAL PROTEIN 5.5 G/DL (6.4-8.2); eGFR 46 ML/MIN
[2021-06-03] MEDS: atorvastatin 10mg tablet PO SCH (08:00)
[2021-06-03] MEDS: apixaban 5mg tablet PO SCH ×2 (08:00→20:37)
[2021-06-03] MEDS: K and/or MAG REPLACEMENT MC SCH ×4 (08:00→19:34)
[2021-06-03] MEDS: docusate sod 100mg capsule PO SCH ×2 (08:00→20:38)
[2021-06-03] MEDS: amiodarone 200mg tablet PO SCH ×2 (09:03→20:38)
[2021-06-03] MEDS: HYDROcodone/acetaminophen 10/325mg tab PO PRN ×2 (09:04→20:38)
[2021-06-03] MEDS: finasteride 5mg tablet PO SCH (11:11)
[2021-06-03] MEDS: timolol 0.5% ophthalmic solution 5ml bottle EACHEYE SCH ×2 (11:12→20:37)
[2021-06-03] MEDS: latanoprost 0.005% 2.5ml ophthalmic drops EACHEYE SCH (20:39)
[2021-06-04] MEDS: HYDROcodone/acetaminophen 10/325mg tab PO PRN ×2 (01:30→09:33)
[2021-06-04 02:00] VITALS: BP 92/64
[2021-06-04 05:00] VITALS: BP 102/52
[2021-06-04 06:50] LABS: BASOPHILS % (AUTO) 0.5 % (0-1); EOSINOPHILS # (AUTO) 0.2 X10'3 (0-0.9); EOSINOPHILS % (AUTO) 2.7 % (0-6); HEMATOCRIT 28.7 % (42.0-52.0); HEMOGLOBIN 9.7 g/dl (14.0-17.9); LYMPHOCYTES # (AUTO) 0.8 X10'3 (1.1-4.8); LYMPHOCYTES % (AUTO) 11.3 % (21-51); MEAN CORPUSCULAR HEMOGLOBIN 31.4 PG (27.0-31.0); MEAN CORPUSCULAR HGB CONC 33.8 g/dL (33.0-36.5); MEAN CORPUSCULAR VOLUME 92.8 FL (78-98); MEAN PLATELET VOLUME 7.1 FL (7.4-10.4); MONOCYTES # (AUTO) 0.7 X10'3 (0-0.9); MONOCYTES % (AUTO) 9.1 % (2-12); NEUTROPHILS # (AUTO) 5.7 X10'3 (1.8-7.7); NEUTROPHILS % (AUTO) 76.4 % (42-75); PLATELET COUNT 387 X10'3 (140-440); RED BLOOD COUNT 3.09 X10'6 (4.70-6.10); RED CELL DISTRIBUTION WIDTH 13.9 % (11.5-14.5); WHITE BLOOD COUNT 7.5 X10'3 (4.5-11.0)
[2021-06-04 07:20] LABS: ALANINE AMINOTRANSFERASE 44 U/L (12-78); ALBUMIN 1.8 G/DL (3.4-5.0); ALBUMIN/GLOBULIN RATIO 0.4 (1.1-1.5); ALKALINE PHOSPHATASE 99 IU/L (46-116); ANION GAP 10 (8-16); ASPARTATE AMINO TRANSFERASE 37 U/L (10-37); BILIRUBIN,TOTAL 0.5 MG/DL (0.1-1.0); BLOOD UREA NITROGEN 33 MG/DL (7-18); BUN/CREATININE RATIO 16.5 (5.4-32.0); CALCIUM 8.7 MG/DL (8.5-10.1); CHLORIDE 99 MMOL/L (99-107); GLUCOSE 126 MG/DL (70-104); MAGNESIUM 2.2 MG/DL (1.5-2.4); PHOSPHORUS 3.7 MG/DL (2.3-4.5); POTASSIUM 4.7 MMOL/L (3.5-5.1); SODIUM 130 MMOL/L (135-145); TOTAL CARBON DIOXIDE 21.1 MMOL/L (24-32); TOTAL PROTEIN 5.9 G/DL (6.4-8.2); eGFR 33 ML/MIN
[2021-06-04] MEDS: K and/or MAG REPLACEMENT MC SCH ×4 (08:00→20:00)
[2021-06-04] MEDS: docusate sod 100mg capsule PO SCH ×2 (09:33→21:00)
[2021-06-04] MEDS: timolol 0.5% ophthalmic solution 5ml bottle EACHEYE SCH ×2 (09:33→21:01)
[2021-06-04] MEDS: amiodarone 200mg tablet PO SCH ×2 (09:34→21:00)
[2021-06-04] MEDS: apixaban 5mg tablet PO SCH ×2 (09:34→21:01)
[2021-06-04] MEDS: atorvastatin 10mg tablet PO SCH (09:34)
[2021-06-04] MEDS: finasteride 5mg tablet PO SCH (09:34)
[2021-06-04 10:00] VITALS: BP 90/55
[2021-06-04 14:00] VITALS: BP 104/62
--- NOTE | 2021-06-04 18:01 | NUR ---
Colostomy bag collecting drainage from previous chest tube site changed. Patient is getting up to bedside chair. Repositioning encouraged. Blanchable redness sacral area, optifoam in place. Plan of care reviewed with patient and at bedside.
--- NOTE | 2021-06-04 18:33 | NUR ---
Problems reprioritized. Patient report given, questions answered & plan of care reviewed with Kalina PORTILLO.
[2021-06-04] MEDS: latanoprost 0.005% 2.5ml ophthalmic drops EACHEYE SCH (21:01)
--- NOTE | 2021-06-04 21:08 | NUR ---
NOTED ABSENT BREATH SOUNDS THROUGHOUT LEFT. DR SOLITARIO NOTIFIED AND ORDERED STAT CHEST XRAY. Addendum: 06/04/21 at 2201 by Kalina Rushing RN this happened at 1929
--- NOTE | 2021-06-04 21:08 | NUR ---
PAGER ID: [phone] MESSAGE: Kalina [phone]. v-rad would like to go over the CXR results for Anand [facility]. # [phone]
[2021-06-04 22:00] VITALS: BP 88/66
[2021-06-05 02:00] VITALS: BP 86/50
[2021-06-05 06:00] VITALS: BP 92/48
[2021-06-05 07:11] LABS: BASOPHILS % (AUTO) 0.4 % (0-1); EOSINOPHILS # (AUTO) 0.2 X10'3 (0-0.9); EOSINOPHILS % (AUTO) 2.6 % (0-6); HEMATOCRIT 28.7 % (42.0-52.0); HEMOGLOBIN 9.8 g/dl (14.0-17.9); LYMPHOCYTES # (AUTO) 0.8 X10'3 (1.1-4.8); MEAN CORPUSCULAR HEMOGLOBIN 31.7 PG (27.0-31.0); MEAN CORPUSCULAR HGB CONC 34.3 g/dL (33.0-36.5); MEAN CORPUSCULAR VOLUME 92.3 FL (78-98); MEAN PLATELET VOLUME 7.2 FL (7.4-10.4); MONOCYTES # (AUTO) 0.7 X10'3 (0-0.9); MONOCYTES % (AUTO) 8.9 % (2-12); NEUTROPHILS # (AUTO) 5.7 X10'3 (1.8-7.7); NEUTROPHILS % (AUTO) 77.1 % (42-75); PLATELET COUNT 394 X10'3 (140-440); RED BLOOD COUNT 3.11 X10'6 (4.70-6.10); RED CELL DISTRIBUTION WIDTH 14.1 % (11.5-14.5); WHITE BLOOD COUNT 7.4 X10'3 (4.5-11.0)
[2021-06-05 07:40] LABS: ALANINE AMINOTRANSFERASE 44 U/L (12-78); ALBUMIN 1.9 G/DL (3.4-5.0); ALBUMIN/GLOBULIN RATIO 0.5 (1.1-1.5); ALKALINE PHOSPHATASE 107 IU/L (46-116); ANION GAP 9 (8-16); ASPARTATE AMINO TRANSFERASE 35 U/L (10-37); BILIRUBIN,TOTAL 0.6 MG/DL (0.1-1.0); BLOOD UREA NITROGEN 33 MG/DL (7-18); BUN/CREATININE RATIO 17.6 (5.4-32.0); CALCIUM 8.8 MG/DL (8.5-10.1); CHLORIDE 100 MMOL/L (99-107); CREATININE 1.87 MG/DL (0.60-1.10); GLUCOSE 112 MG/DL (70-104); MAGNESIUM 2.4 MG/DL (1.5-2.4); POTASSIUM 4.9 MMOL/L (3.5-5.1); SODIUM 132 MMOL/L (135-145); TOTAL CARBON DIOXIDE 22.7 MMOL/L (24-32); eGFR 36 ML/MIN
[2021-06-05] MEDS: docusate sod 100mg capsule PO SCH ×2 (07:55→20:02)
[2021-06-05] MEDS: amiodarone 200mg tablet PO SCH ×2 (07:55→20:02)
[2021-06-05] MEDS: finasteride 5mg tablet PO SCH (07:55)
[2021-06-05] MEDS: magnesium hydroxide 30ml (MOM) UD suspension PO PRN (07:55)
[2021-06-05] MEDS: timolol 0.5% ophthalmic solution 5ml bottle EACHEYE SCH ×2 (07:55→20:02)
[2021-06-05] MEDS: atorvastatin 10mg tablet PO SCH (07:55)
[2021-06-05] MEDS: apixaban 5mg tablet PO SCH ×2 (07:55→20:02)
[2021-06-05] MEDS: K and/or MAG REPLACEMENT MC SCH ×4 (08:00→19:13)
[2021-06-05 10:00] VITALS: BP 101/57
--- NOTE | 2021-06-05 11:00 | NUR ---
Dr. Loera and I sat with patient and discussed code status in great detail. Dr. Loera explained the prognosis and advancement of the patients cancer. Pt asked questions and verbalized understanding with the answers. Pt still wants to remain a full code at this time, despite understanding his prognosis.
--- NOTE | 2021-06-05 11:04 | NUR ---
Reassessment: PO intake has decreased some, avg 46% x 12 meals not meeting needs. Pt's biopsy did show metastatic squamous cell carcinoma per MD note. Recommend Ensure Enlive TID at this time as well as liberalize to Regular diet given A1C 6.4 if MD agreeable. LBM 05/30 receiving routine colace. D/w RN additional bowel care per MD discretion given 6 days constipation. Will continue to monitor Recommendations: 1. Continue CHO controlled diet; consider liberalizing to regular diet in view of A1c 6.4% 2. Ensure Enlive TID; pending MD verification 3. Routine bowel care; 6 days constipation 4. Scaled wt this admit, subsequent weekly wts Addendum: 06/05/21 at [address] Amended: Links added.
[2021-06-05] MEDS ORDERED: bisacodyl 10mg suppository rectal RC PRN (11:20)
[2021-06-05 14:00] VITALS: BP 112/71
[2021-06-05] MEDS: latanoprost 0.005% 2.5ml ophthalmic drops EACHEYE SCH (20:02)
[2021-06-05] MEDS: polyethylene glycol 3350 17gm powd pack PO SCH (20:02)
[2021-06-05] MEDS: HYDROcodone/acetaminophen 10/325mg tab PO PRN (20:04)
[2021-06-05] MEDS: insulin Lispro (HumaLOG) vial - multi-dose SQ SCH (20:07)
[2021-06-05 22:00] VITALS: BP 154/111
[2021-06-06 02:00] VITALS: BP 93/52
[2021-06-06] MEDS: benzocaine/menthol oral lozeng 1 EACH BOX MM PRN (04:29)
[2021-06-06 06:00] VITALS: BP 90/46
[2021-06-06 07:11] LABS: BASOPHILS % (AUTO) 0.3 % (0-1); EOSINOPHILS # (AUTO) 0.1 X10'3 (0-0.9); HEMATOCRIT 30.5 % (42.0-52.0); HEMOGLOBIN 10.1 g/dl (14.0-17.9); LYMPHOCYTES # (AUTO) 0.5 X10'3 (1.1-4.8); LYMPHOCYTES % (AUTO) 7.1 % (21-51); MEAN CORPUSCULAR HEMOGLOBIN 30.8 PG (27.0-31.0); MEAN CORPUSCULAR HGB CONC 33.2 g/dL (33.0-36.5); MEAN CORPUSCULAR VOLUME 92.8 FL (78-98); MONOCYTES # (AUTO) 0.7 X10'3 (0-0.9); MONOCYTES % (AUTO) 10.4 % (2-12); NEUTROPHILS # (AUTO) 5.7 X10'3 (1.8-7.7); NEUTROPHILS % (AUTO) 80.2 % (42-75); PLATELET COUNT 360 X10'3 (140-440); RED BLOOD COUNT 3.28 X10'6 (4.70-6.10); WHITE BLOOD COUNT 7.2 X10'3 (4.5-11.0)
[2021-06-06 07:27] LABS: ALANINE AMINOTRANSFERASE 49 U/L (12-78); ALBUMIN 1.9 G/DL (3.4-5.0); ALBUMIN/GLOBULIN RATIO 0.5 (1.1-1.5); ALKALINE PHOSPHATASE 115 IU/L (46-116); ANION GAP 8 (8-16); ASPARTATE AMINO TRANSFERASE 49 U/L (10-37); BILIRUBIN,TOTAL 0.4 MG/DL (0.1-1.0); BLOOD UREA NITROGEN 35 MG/DL (7-18); BUN/CREATININE RATIO 17.9 (5.4-32.0); CALCIUM 8.6 MG/DL (8.5-10.1); CHLORIDE 98 MMOL/L (99-107); CREATININE 1.96 MG/DL (0.60-1.10); GLUCOSE 113 MG/DL (70-104); MAGNESIUM 2.4 MG/DL (1.5-2.4); PHOSPHORUS 3.5 MG/DL (2.3-4.5); POTASSIUM 5.1 MMOL/L (3.5-5.1); SODIUM 130 MMOL/L (135-145); TOTAL CARBON DIOXIDE 24.4 MMOL/L (24-32); TOTAL PROTEIN 6.1 G/DL (6.4-8.2); eGFR 34 ML/MIN
[2021-06-06] MEDS: K and/or MAG REPLACEMENT MC SCH ×4 (08:00→19:07)
[2021-06-06] MEDS: amiodarone 200mg tablet PO SCH ×2 (09:21→19:50)
[2021-06-06] MEDS: timolol 0.5% ophthalmic solution 5ml bottle EACHEYE SCH ×2 (09:22→19:51)
[2021-06-06 10:00] VITALS: BP_SYST 161; BP_SYST 91; BP_DIAS 61; BP_DIAS 71
--- NOTE | 2021-06-06 11:00 | NUR ---
Paged IVAN nurse assist pt to CT?
[2021-06-06] MEDS: docusate sod 100mg capsule PO SCH ×2 (11:29→19:50)
[2021-06-06] MEDS: HYDROcodone/acetaminophen 10/325mg tab PO PRN ×2 (11:29→16:07)
[2021-06-06] MEDS: finasteride 5mg tablet PO SCH (11:29)
[2021-06-06] MEDS: atorvastatin 10mg tablet PO SCH (11:40)
--- NOTE | 2021-06-06 13:41 | NUR ---
Page to Dr Loera Transaction number: [id number] Message: Room 313. Anand [facility]. CT results are in. Erlinda Andujar [phone]
[2021-06-06 14:00] VITALS: BP 134/87
--- NOTE | 2021-06-06 14:27 | NUR ---
Per Dr Loera - please let Dr Oreilly know that the CT results are in. Called angio - they will let Dr Oreilly know.
[2021-06-06 18:00] VITALS: BP 107/53
--- NOTE | 2021-06-06 18:37 | NUR ---
Problems reprioritized. Patient report given, questions answered & plan of care reviewed with BANDAR Tenorio.
--- NOTE | 2021-06-06 18:42 | NUR ---
Pt repositions self Q2H and PRN.
--- NOTE | 2021-06-06 19:00 | NUR ---
Patient in room MED 313. I have received report from NIECY PORTILLO and had the opportunity to ask questions and assume patient care.
[2021-06-06] MEDS: magnesium hydroxide 30ml (MOM) UD suspension PO PRN (21:59)
[2021-06-06] MEDS: latanoprost 0.005% 2.5ml ophthalmic drops EACHEYE SCH (21:59)
[2021-06-06 22:00] VITALS: BP 105/60
[2021-06-06] MEDS: polyethylene glycol 3350 17gm powd pack PO SCH (22:00)
[2021-06-06] MEDS: mag hydrox/Alum hydrox/simeth 30ml oral suspension PO PRN (23:34)
[2021-06-07] MEDS: benzocaine/menthol oral lozeng 1 EACH BOX MM PRN ×3 (00:01→20:20)
[2021-06-07 02:00] VITALS: BP 116/71
[2021-06-07 06:00] VITALS: BP 119/94
--- NOTE | 2021-06-07 06:35 | NUR ---
Problems reprioritized. Patient report given, questions answered & plan of care reviewed with SAMIRA PORTILLO.
[2021-06-07] MEDS: amiodarone 200mg tablet PO SCH ×2 (07:34→20:17)
[2021-06-07] MEDS: finasteride 5mg tablet PO SCH (07:34)
[2021-06-07] MEDS: atorvastatin 10mg tablet PO SCH (07:34)
[2021-06-07] MEDS: docusate sod 100mg capsule PO SCH ×2 (07:34→20:17)
[2021-06-07] MEDS: timolol 0.5% ophthalmic solution 5ml bottle EACHEYE SCH ×2 (07:35→20:23)
[2021-06-07] MEDS: K and/or MAG REPLACEMENT MC SCH ×4 (08:00→19:43)
[2021-06-07 12:00] VITALS: BP 103/55
[2021-06-07 16:00] VITALS: BP 108/43
[2021-06-07] MEDS: polyethylene glycol 3350 17gm powd pack PO SCH (20:17)
[2021-06-07] MEDS: latanoprost 0.005% 2.5ml ophthalmic drops EACHEYE SCH (20:23)
[2021-06-07 22:00] VITALS: BP 82/49
[2021-06-08 02:00] VITALS: BP 94/48
[2021-06-08 03:46] VITALS: BP 106/64
[2021-06-08] MEDS: HYDROcodone/acetaminophen 10/325mg tab PO PRN ×2 (03:46→16:15)
[2021-06-08 06:06] VITALS: BP 88/46
[2021-06-08] MEDS: K and/or MAG REPLACEMENT MC SCH ×2 (08:00)
[2021-06-08] MEDS: timolol 0.5% ophthalmic solution 5ml bottle EACHEYE SCH (09:10)
[2021-06-08] MEDS: docusate sod 100mg capsule PO SCH (09:11)
[2021-06-08] MEDS: finasteride 5mg tablet PO SCH (09:11)
[2021-06-08] MEDS: atorvastatin 10mg tablet PO SCH (09:11)
[2021-06-08] MEDS: amiodarone 200mg tablet PO SCH (09:11)
[2021-06-08] MEDS ORDERED: AMIO200T67 PO ×2 (09:41)
[2021-06-08] MEDS ORDERED: HYDR-3965 PO ×2 (09:41)
[2021-06-08 11:11] VITALS: BP 95/45
[2021-06-08 17:05] VITALS: BP 84/51
[2021-06-08] MEDS ORDERED: finasteride 5mg tablet PO SCH (17:10)
== END 2021-06-08 16:58 | disposition home or self-care (01) | DRG 166 ==
LOC: ER 14:40 → ED HOLD 23:05 → MED 3N 05-25 15:08
PROVIDERS: ADMIT Internal Medicine; ATTEND Internal Medicine
PROC: 0W9B3ZZ Drainage of Left Pleural Cavity, Percutaneous Approach (ICD-10-PCS; 2021-05-24)
PROC: 0W9B00Z Drainage of Left Pleural Cavity with Drainage Device, Open Approach (ICD-10-PCS; 2021-05-27)
PROC: 0BBP0ZX Excision of Left Pleura, Open Approach, Diagnostic (ICD-10-PCS; principal; 2021-05-27 13:10)
PROC: 0W9B30Z Drainage of Left Pleural Cavity with Drainage Device, Percutaneous Approach (ICD-10-PCS; 2021-05-30)
PROC: 3E02340 Introduction of Influenza Vaccine into Muscle, Percutaneous Approach (ICD-10-PCS; 2021-06-01)
DX: C34.92 Malignant neoplasm of unspecified part of left bronchus or lung (principal); N17.0 Acute kidney failure with tubular necrosis; J91.0 Malignant pleural effusion; J94.8 Other specified pleural conditions; I48.92 Unspecified atrial flutter; E44.0 Moderate protein-calorie malnutrition; T79.7XXA Traumatic subcutaneous emphysema, initial encounter; D63.8 Anemia in other chronic diseases classified elsewhere; E78.5 Hyperlipidemia, unspecified; I11.0 Hypertensive heart disease with heart failure; Z20.822 Contact with and (suspected) exposure to COVID-19; E11.9 Type 2 diabetes mellitus without complications; I25.10 Atherosclerotic heart disease of native coronary artery without angina pectoris; I48.0 Paroxysmal atrial fibrillation; I50.9 Heart failure, unspecified; K80.20 Calculus of gallbladder without cholecystitis without obstruction; N40.0 Benign prostatic hyperplasia without lower urinary tract symptoms; Z79.899 Other long term (current) drug therapy; Z82.5 Family history of asthma and other chronic lower respiratory diseases; Z68.31 Body mass index [BMI] 31.0-31.9, adult; Z83.3 Family history of diabetes mellitus; Z87.891 Personal history of nicotine dependence; Z23 Encounter for immunization; I95.9 Hypotension, unspecified
CPT/HCPCS: 32555; 32557; 36415; 36569; 36600; 71045; 71250; 80053; 82803; 82945; 82948; 83735; 83880; 84100; 84157; 84484; 85018; 85025; 85610; 85730; 86885; 86900; 86901; 86920; 87070; 87081; 87635; 88108; 88305; 88341; 88342; 89051; 93005; 94760; 96372; 96374; 97110; 97116; 97161; 97530; 99291; A4215; A4618; A6258; A6449; A7000; A7048; C1758; C9250; C9803; G0378; J0131; J0282; J0690; J1170; J1265; J1720; J1815; J2250; J2270; J2704; J2710; J3010; J3490; J7030; J7040; J7050; J7060; J7120; P9045

== ENCOUNTER 2021-06-10 09:51 | Inpatient (IN) | payer MEDICARE, MEDICAID ==
[~2021-06-10] VITALS: Ht 180.3 cm; Wt 102.7 kg
[~2021-06-10 09:51] MED LIST changes: +AMIO200T67 PO; +CARV3.123 PO; -COR3.125T PO; +DILT30TA PO; -DILT30TA2 PO; +HYDR-3965 PO; -LISI2.5T14 PO; +LISI2.5T89 PO; +TIMO1DRO8 EACHEYE
[2021-06-10] MEDS ORDERED: normal saline 1000ML IV soln IV ONE (11:15)
[2021-06-10 11:41] LABS: BASOPHILS % (AUTO) 0.2 % (0-1); EOSINOPHILS % (AUTO) 0.2 % (0-6); HEMATOCRIT 27.3 % (42.0-52.0); HEMOGLOBIN 9.1 g/dl (14.0-17.9); LYMPHOCYTES # (AUTO) 0.5 X10'3 (1.1-4.8); LYMPHOCYTES % (AUTO) 5.6 % (21-51); MEAN CORPUSCULAR HEMOGLOBIN 30.5 PG (27.0-31.0); MEAN CORPUSCULAR HGB CONC 33.3 g/dL (33.0-36.5); MEAN CORPUSCULAR VOLUME 91.6 FL (78-98); MEAN PLATELET VOLUME 6.8 FL (7.4-10.4); MONOCYTES # (AUTO) 0.5 X10'3 (0-0.9); MONOCYTES % (AUTO) 5.4 % (2-12); NEUTROPHILS # (AUTO) 7.7 X10'3 (1.8-7.7); NEUTROPHILS % (AUTO) 88.6 % (42-75); PLATELET COUNT 373 X10'3 (140-440); RED BLOOD COUNT 2.98 X10'6 (4.70-6.10); RED CELL DISTRIBUTION WIDTH 14.1 % (11.5-14.5); WHITE BLOOD COUNT 8.7 X10'3 (4.5-11.0)
[2021-06-10 11:57] LABS: CLARITY,URINE CLOUDY (Clear); COLOR,URINE YELLOW (Yellow); GLUCOSE, URINE NEGATIVE (Neg); KETONES,URINE TRACE mg/dl (Neg); LEUKOCYTE ESTERASE ,URINE NEGATIVE (Neg); NITRITES, URINE NEGATIVE (Neg); OCCULT BLOOD,URINE NEGATIVE (Neg); PH,URINE 5.5 (4.8-8.0); PROTEIN,URINE NEGATIVE (Neg); UROBILINOGEN,URINE 0.2 E.U/dL (0.2-1.0)
[2021-06-10 12:00] LABS: ALANINE AMINOTRANSFERASE 49 U/L (12-78); ALBUMIN 1.8 G/DL (3.4-5.0); ALBUMIN/GLOBULIN RATIO 0.4 (1.1-1.5); ALKALINE PHOSPHATASE 94 IU/L (46-116); ANION GAP 9 (8-16); ASPARTATE AMINO TRANSFERASE 52 U/L (10-37); BILIRUBIN,TOTAL 0.5 MG/DL (0.1-1.0); BLOOD UREA NITROGEN 41 MG/DL (7-18); BUN/CREATININE RATIO 19.7 (5.4-32.0); CALCIUM 8.3 MG/DL (8.5-10.1); CHLORIDE 95 MMOL/L (99-107); CREATININE 2.08 MG/DL (0.60-1.10); GLUCOSE 132 MG/DL (70-104); POTASSIUM 5.3 MMOL/L (3.5-5.1); SODIUM 127 MMOL/L (135-145); TOTAL CARBON DIOXIDE 22.7 MMOL/L (24-32); TOTAL PROTEIN 6.1 G/DL (6.4-8.2); eGFR 32 ML/MIN
[2021-06-10 12:07] LABS: UA COLLECTION TYPE URINAL
[2021-06-10 12:07] LABS: MAGNESIUM 2.6 MG/DL (1.5-2.4)
[2021-06-10 12:09] LABS: MUCUS STRANDS MODERATE /LPF (Neg); SQUAMOUS EPITHELIAL CELL,UR MODERATE /LPF (FEW)
[2021-06-10 12:10] LABS: BACTERIA,URINE 1+ /HPF (Neg); COARSE GRANULAR CAST 0-3 /LPF (NEGATIVE); WBC,URINE 20-30 /HPF (0-4)
[2021-06-10 12:11] LABS: RBC,URINE 0-2 /HPF (0-2); WBC CLUMPS,URINE MODERATE /HPF (NEGATIVE)
[2021-06-10] MEDS ORDERED: CefTRIAXone 2gm/D5W 50ml BAG 50 ML IV ONE (12:50)
[2021-06-10] MEDS ORDERED: AMIO200T27 PO (13:08)
[2021-06-10] MEDS ORDERED: HYDR-3965 PO (13:08)
--- NOTE | 2021-06-10 13:17 | NUR ---
MED LIST FAXED TO PHARMACY
[2021-06-10] MEDS ORDERED: magnesium 2GM in 50ml NS 50 ML IV PRN (14:50)
[2021-06-10] MEDS ORDERED: acetaminophen 325mg tablet PO PRN (14:50)
[2021-06-10] MEDS ORDERED: potassium CL 10mEq/100ml bag 100 ML IV PRN (14:50)
[2021-06-10] MEDS ORDERED: morphine 2 MG/ML inj. syringe IV PRN (14:50)
[2021-06-10] MEDS ORDERED: magnesium 4gm in 100ml NS 100 ML IV PRN (14:50)
[2021-06-10] MEDS ORDERED: magnesium Cl slow-release 64mg tablet PO PRN (14:50)
[2021-06-10] MEDS ORDERED: potassium Cl 20 mEq SR tablet PO PRN ×2 (14:50)
[2021-06-10] MEDS ORDERED: ondansetron/PF 4mg/2ml inj IV PRN (14:50)
[2021-06-10] MEDS: normal saline 1000ml 1,000 ML IV SCH (17:44)
[2021-06-10] MEDS ORDERED: ringers solution, lacted 1,000 ML IV ONE (19:30)
[2021-06-10] MEDS: K and/or MAG REPLACEMENT MC SCH (19:32)
[2021-06-10] MEDS: terazosin 5mg capsule PO SCH (20:00)
[2021-06-10] MEDS: timolol 0.5% ophthalmic solution 5ml bottle EACHEYE SCH (21:35)
[2021-06-10] MEDS: latanoprost 0.005% 2.5ml ophthalmic drops EACHEYE SCH (21:36)
[2021-06-10] MEDS: amiodarone 200mg tablet PO SCH (21:45)
[2021-06-11] MEDS: normal saline 1000ml 1,000 ML IV SCH ×3 (00:50→23:02)
--- NOTE | 2021-06-11 01:11 | NUR ---
PATIENTS PREVIOUS TUBE PLACEMENT INSERTION SITE DRAINING CLEAR FLUID AND AIR. OCCLUSIVE DRESSING AND GAUZE/TAPE PLACED OVER WOUND. CHITRA AWARE
[2021-06-11 03:47] LABS: BASOPHILS % (AUTO) 0.1 % (0-1); EOSINOPHILS % (AUTO) 0.2 % (0-6); HEMOGLOBIN 8.4 g/dl (14.0-17.9); LYMPHOCYTES # (AUTO) 0.6 X10'3 (1.1-4.8); LYMPHOCYTES % (AUTO) 6.8 % (21-51); MEAN CORPUSCULAR HEMOGLOBIN 30.8 PG (27.0-31.0); MEAN CORPUSCULAR HGB CONC 33.5 g/dL (33.0-36.5); MEAN CORPUSCULAR VOLUME 91.8 FL (78-98); MEAN PLATELET VOLUME 6.7 FL (7.4-10.4); MONOCYTES # (AUTO) 0.5 X10'3 (0-0.9); MONOCYTES % (AUTO) 6.3 % (2-12); NEUTROPHILS # (AUTO) 7.3 X10'3 (1.8-7.7); NEUTROPHILS % (AUTO) 86.6 % (42-75); PLATELET COUNT 282 X10'3 (140-440); RED BLOOD COUNT 2.73 X10'6 (4.70-6.10); RED CELL DISTRIBUTION WIDTH 14.4 % (11.5-14.5); WHITE BLOOD COUNT 8.5 X10'3 (4.5-11.0)
[2021-06-11 04:02] LABS: ALBUMIN 1.6 G/DL (3.4-5.0); ANION GAP 8 (8-16); BLOOD UREA NITROGEN 33 MG/DL (7-18); BUN/CREATININE RATIO 17.1 (5.4-32.0); CALCIUM 7.8 MG/DL (8.5-10.1); CHLORIDE 99 MMOL/L (99-107); CREATININE 1.93 MG/DL (0.60-1.10); GLUCOSE 89 MG/DL (70-104); MAGNESIUM 2.3 MG/DL (1.5-2.4); POTASSIUM 4.6 MMOL/L (3.5-5.1); SODIUM 129 MMOL/L (135-145); eGFR 35 ML/MIN
[2021-06-11] MEDS: finasteride 5mg tablet PO SCH (08:00)
[2021-06-11] MEDS: K and/or MAG REPLACEMENT MC SCH ×2 (08:00→20:00)
--- NOTE | 2021-06-11 08:54 | NUR ---
PAGE SENT TO DR BLOUNT REGARDING LARGE AMOUNT OF FLUID FROM CHEST TUBE REMOVAL SITE.
[2021-06-11] MEDS: amiodarone 200mg tablet PO SCH ×2 (09:40→19:13)
[2021-06-11] MEDS: terazosin 5mg capsule PO SCH ×2 (09:40→20:00)
[2021-06-11] MEDS: atorvastatin 10mg tablet PO SCH (09:40)
[2021-06-11] MEDS: timolol 0.5% ophthalmic solution 5ml bottle EACHEYE SCH ×2 (09:41→19:11)
[2021-06-11 10:20] VITALS: BP 81/44
[2021-06-11] MEDS ORDERED: REMDESIVIR INJ 100 MG in normal saline 100ml IV soln 100 ML IV SCH (11:25)
[2021-06-11] MEDS ORDERED: REMDESIVIR 200 MG in NS 100ml IVPB Loading dose IV ONE (11:47)
[2021-06-11] MEDS ORDERED: ondansetron 4mg rapidly disintigrating tab PO PRN (15:45)
--- NOTE | 2021-06-11 16:20 | NUR ---
PAGER ID: [phone] MESSAGE: Dr. Aundrea [facility] Blood pressure is still low at 81/44. Thank youNunu [phone] Addendum: 06/11/21 at 1646 by Lavinia Willson RN NS Bolus 500ml per Dr. Guillaume.
[2021-06-11] MEDS ORDERED: normal saline 500ml IV soln 500 ML IV ONE ×2 (16:25→18:15)
--- NOTE | 2021-06-11 16:46 | NUR ---
Paged about possible blood thinner, crp, and d-dimer
--- NOTE | 2021-06-11 18:40 | NUR ---
Problems reprioritized. Patient report given, questions answered & plan of care reviewed with Valerie PORTILLO.
[2021-06-11 19:00] VITALS: BP 79/47
[2021-06-11] MEDS: dexamethasone 4mg/ml inj IV SCH (19:13)
[2021-06-11] MEDS: latanoprost 0.005% 2.5ml ophthalmic drops EACHEYE SCH (19:59)
[2021-06-11 22:00] VITALS: BP 84/48
[2021-06-11] MEDS: CefTRIAXone/D5W-Rocephin 1gm 50 ML IV SCH (22:56)
[2021-06-11] MEDS: benzocaine/menthol oral lozeng 1 EACH BOX MM PRN (23:27)
[2021-06-12] VITALS (8 sets, daily range): BP systolic 83–109; BP diastolic 51–65
--- NOTE | 2021-06-12 06:15 | NUR ---
Problems reprioritized. Patient report given, questions answered & plan of care reviewed with BANDAR OCHOA.
--- NOTE | 2021-06-12 06:38 | NUR ---
Patient in room ORTHO 4020. I have received report from Valerie PORTILLO and had the opportunity to ask questions and assume patient care.
[2021-06-12] MEDS: normal saline 1000ml 1,000 ML IV SCH ×3 (06:53→21:33)
[2021-06-12] MEDS: atorvastatin 10mg tablet PO SCH (07:53)
[2021-06-12] MEDS: amiodarone 200mg tablet PO SCH ×2 (07:53→21:16)
[2021-06-12] MEDS: finasteride 5mg tablet PO SCH (07:54)
[2021-06-12] MEDS: dexamethasone 4mg/ml inj IV SCH ×2 (07:54→21:16)
[2021-06-12] MEDS: REMDESIVIR 100 MG in NS 100ml IVPB IV SCH (07:56)
[2021-06-12] MEDS: terazosin 5mg capsule PO SCH ×2 (07:56→20:00)
[2021-06-12] MEDS: timolol 0.5% ophthalmic solution 5ml bottle EACHEYE SCH ×2 (07:56→20:34)
[2021-06-12] MEDS: K and/or MAG REPLACEMENT MC SCH ×2 (08:00→20:00)
[2021-06-12 09:11] LABS: BASOPHILS % (AUTO) 0 % (0-1); EOSINOPHILS % (AUTO) 0 % (0-6); HEMATOCRIT 29.4 % (42.0-52.0); HEMOGLOBIN 9.5 g/dl (14.0-17.9); LYMPHOCYTES # (AUTO) 0.4 X10'3 (1.1-4.8); LYMPHOCYTES % (AUTO) 6.4 % (21-51); MEAN CORPUSCULAR HEMOGLOBIN 30.5 PG (27.0-31.0); MEAN CORPUSCULAR HGB CONC 32.3 g/dL (33.0-36.5); MEAN CORPUSCULAR VOLUME 94.4 FL (78-98); MEAN PLATELET VOLUME 6.7 FL (7.4-10.4); MONOCYTES # (AUTO) 0.1 X10'3 (0-0.9); MONOCYTES % (AUTO) 1.2 % (2-12); NEUTROPHILS # (AUTO) 5.8 X10'3 (1.8-7.7); NEUTROPHILS % (AUTO) 92.4 % (42-75); PLATELET COUNT 327 X10'3 (140-440); RED BLOOD COUNT 3.11 X10'6 (4.70-6.10); RED CELL DISTRIBUTION WIDTH 14.5 % (11.5-14.5); WHITE BLOOD COUNT 6.3 X10'3 (4.5-11.0)
[2021-06-12 09:24] LABS: ALBUMIN 1.5 G/DL (3.4-5.0); ANION GAP 11 (8-16); BLOOD UREA NITROGEN 29 MG/DL (7-18); CALCIUM 7.9 MG/DL (8.5-10.1); CHLORIDE 104 MMOL/L (99-107); CREATININE 1.53 MG/DL (0.60-1.10); GLUCOSE 179 MG/DL (70-104); MAGNESIUM 2.4 MG/DL (1.5-2.4); POTASSIUM 4.6 MMOL/L (3.5-5.1); SODIUM 134 MMOL/L (135-145); TOTAL CARBON DIOXIDE 18.9 MMOL/L (24-32); eGFR 45 ML/MIN
--- NOTE | 2021-06-12 09:56 | NUR ---
PAGER ID: [phone] MESSAGE: [id number], [facility] [facility] bp is 83/51 map of 60, has received multiple boluses hx of CHF and left sided pleural effusion. Do we want to do something else for his BP? maria teresa [phone]
--- NOTE | 2021-06-12 10:28 | NUR ---
Did not receive call back from MD regarding hypotension; 250 ml bolus given per nursing protocol
[2021-06-12 10:57] LABS: D-DIMER 0.93 MG/L FEU (0-0.50)
--- NOTE | 2021-06-12 10:59 | NUR ---
Bolus given. Still awaiting call from
--- NOTE | 2021-06-12 11:02 | NUR ---
BP 86/58 after bolus
[2021-06-12] MEDS ORDERED: albumin (human) 25% 100 ML IV solution IV ONE (12:25)
--- NOTE | 2021-06-12 12:53 | NUR ---
PAGER ID: [phone] MESSAGE: [id number], Tavon can i get a chest x-ray? his site where his chest tube was is putting out a lot of fluid and air when he coughs, has subcutaneous crepitis around site also. thanks! maria teresa [phone]
--- NOTE | 2021-06-12 12:58 | NUR ---
Malnutrition screen: Pt admitted w/ Covid, BUSTER, metastatic squamous cell CA per EMR. Current wt not scaled and there does not seem to be a new wt since May 2021. Pt appeared WD/WN on previous admit ~19 days ago. Currently on Carb Controlled diet w/ 75% intake of first 3 meals. BLE trace edema noted. At this time, pt does not meet minimum requirements for malnutrition. Recommend liberalize to Regular diet given A1C 6.4. Will continue to monitor. Addendum: 06/12/21 at [address] Amended: Links added.
--- NOTE | 2021-06-12 14:49 | NUR ---
Noted large amount of fluid from left lung dressing site. Redressed and spoke with Dr. Guillaume while she was at the bedside about contacting Dr. Ruth as this patient was supposed to get some sort of pleurx catheter placed out patient for his recurrent effusion. Crepitus noted along left posterior chest and air heard gushing from site when he is coughing. One time albumin given for hypotension bp at this time 91/55.
--- NOTE | 2021-06-12 14:51 | NUR ---
Also spoke with Dr. Guillaume about anticoagulant for this patient as he is in a-fib and has covid. Not going to anticoagulate at this time.
[2021-06-12] MEDS: levoFLOXACIN-Levaquin 500mg/D5 100 ML IV SCH (17:20)
--- NOTE | 2021-06-12 18:55 | NUR ---
Problems reprioritized. Patient report given, questions answered & plan of care reviewed with Davy PORTILLO.
[2021-06-12] MEDS: latanoprost 0.005% 2.5ml ophthalmic drops EACHEYE SCH (21:18)
--- NOTE | 2021-06-12 22:35 | NUR ---
Left chest (axillary) dressing saturated yellow/clear fluid. removed. betadine area around sutures and open areas. noted when patient coughs bubbles and fluid drain from furthest posterior slit. petroleum gauze placed over all open areas. covered with absorbant square and 2 abd pads. wide silk tape placed. will continue to monitor for drainage. pt may potentially benefit from a stoma appliance around opening to prevent skin breakdown. will place WOC and also pt getting a thoracentesis tomorrow am. will reevaluate after procedure.
[2021-06-12] MEDS: CefTRIAXone/D5W-Rocephin 1gm 50 ML IV SCH (23:13)
[2021-06-13 02:05] VITALS: BP 102/62
[2021-06-13] MEDS: HYDROcodone/acetaminophen 5mg/325mg tablet PO PRN ×2 (03:38→19:36)
--- NOTE | 2021-06-13 05:38 | NUR ---
pt coughs more when turned on his side. tolerated only 30 min before coughing caused too much pain and repositioned back to his back. dressing leaking a small amount WOC ordered to assist with drainage devices and skin protections
--- NOTE | 2021-06-13 06:18 | NUR ---
Patient in room ORTHO 4020. I have received report from Davy PORTILLO and had the opportunity to ask questions and assume patient care.
--- NOTE | 2021-06-13 06:26 | NUR ---
reported to days. noted pt resting. anticiapte thoracetesis today.
[2021-06-13 06:33] VITALS: BP 97/55
[2021-06-13 07:23] LABS: ALBUMIN 1.7 G/DL (3.4-5.0); ANION GAP 9 (8-16); BLOOD UREA NITROGEN 34 MG/DL (7-18); BUN/CREATININE RATIO 21.8 (5.4-32.0); CALCIUM 7.6 MG/DL (8.5-10.1); CHLORIDE 105 MMOL/L (99-107); CREATININE 1.56 MG/DL (0.60-1.10); GLUCOSE 195 MG/DL (70-104); MAGNESIUM 2.1 MG/DL (1.5-2.4); POTASSIUM 4.4 MMOL/L (3.5-5.1); SODIUM 134 MMOL/L (135-145); TOTAL CARBON DIOXIDE 20.5 MMOL/L (24-32); eGFR 44 ML/MIN
[2021-06-13 07:24] LABS: BASOPHILS % (AUTO) 0 % (0-1); EOSINOPHILS % (AUTO) 0 % (0-6); HEMOGLOBIN 8.3 g/dl (14.0-17.9); LYMPHOCYTES # (AUTO) 0.4 X10'3 (1.1-4.8); LYMPHOCYTES % (AUTO) 4.1 % (21-51); MEAN CORPUSCULAR HEMOGLOBIN 30.5 PG (27.0-31.0); MEAN CORPUSCULAR HGB CONC 33.1 g/dL (33.0-36.5); MEAN PLATELET VOLUME 6.8 FL (7.4-10.4); MONOCYTES # (AUTO) 0.1 X10'3 (0-0.9); MONOCYTES % (AUTO) 1.4 % (2-12); NEUTROPHILS # (AUTO) 8.8 X10'3 (1.8-7.7); NEUTROPHILS % (AUTO) 94.5 % (42-75); PLATELET COUNT 347 X10'3 (140-440); RED BLOOD COUNT 2.72 X10'6 (4.70-6.10); RED CELL DISTRIBUTION WIDTH 14.1 % (11.5-14.5); WHITE BLOOD COUNT 9.3 X10'3 (4.5-11.0)
--- NOTE | 2021-06-13 07:31 | NUR ---
PAGER ID: [phone] MESSAGE: [id number], [facility] BP has been better since albumin, 106 systolic this AM. Do you think we should do any more today in anticipation of the thoracentesis? maria teresa [phone]
[2021-06-13] MEDS: REMDESIVIR 100 MG in NS 100ml IVPB IV SCH (07:36)
[2021-06-13] MEDS: finasteride 5mg tablet PO SCH (07:36)
[2021-06-13] MEDS: atorvastatin 10mg tablet PO SCH (07:36)
[2021-06-13] MEDS: dexamethasone 4mg/ml inj IV SCH ×2 (07:36→19:36)
[2021-06-13] MEDS: amiodarone 200mg tablet PO SCH ×2 (07:36→19:36)
[2021-06-13] MEDS: levoFLOXACIN-Levaquin 500mg/D5 100 ML IV SCH (07:36)
[2021-06-13] MEDS: timolol 0.5% ophthalmic solution 5ml bottle EACHEYE SCH ×2 (07:37→19:41)
[2021-06-13] MEDS: K and/or MAG REPLACEMENT MC SCH ×2 (08:00→20:00)
[2021-06-13] MEDS: terazosin 5mg capsule PO SCH ×2 (08:00→19:42)
[2021-06-13] MEDS ORDERED: albumin (human) 25% 100 ML IV solution IV ONE (08:10)
--- NOTE | 2021-06-13 09:49 | NUR ---
Changed patients dressing and repositioned to alleviate pain from patients tailbone.
--- NOTE | 2021-06-13 10:51 | NUR ---
AGER ID: [phone] MESSAGE: [phone], Tavon has no order for a thoracentesis and angio does not know anything about the patient. Can i put in an order please? maria teresa [phone]
--- NOTE | 2021-06-13 10:53 | NUR ---
Called and spoke to angio, they have no orders for thoracentesis for this patient. Placed page to Dr. Guillaume for orders. Orders receieved along with culture of fluid.
[2021-06-13 10:54] VITALS: BP 144/111
[2021-06-13] MEDS: normal saline 1000ml 1,000 ML IV SCH ×2 (12:52→22:22)
--- NOTE | 2021-06-13 13:52 | NUR ---
PRESSURE ULCER EDUCATION: DEFINITION: A pressure ulcer is an area of skin that breaks down when you stay in one position too long. The constant pressure against the skin reduces the blood flow to that area and the affected tissue dies. CAUSES: "Being bedridden or in a wheelchair "Fragile skin "Having a chronic condition, such as diabetes or vascular disease "Inability to move certain parts of your body without assistance "Older age "Incontinence of urine or stool SYMPTOMS: "A reddened area that DOES NOT turn white when pressed on - this can be the beginning of a pressure ulcer "A blister, deep sore or a crater - these can be advanced pressure ulcers FIRST AID: "Relieve the pressure on this area "Keep the area clean and dry "Call your primary doctor if you see any of the above symptoms "DO NOT massage the area "DO NOT use a donut shaped or ring shaped pillow- these actually interfere with the blood flow and cause complications PREVENTION: "Check for pressure ulcers everyday "Change position at least every two hours to relieve pressure "Use items that help relieve pressure- pillows, sheepskin, foam padding, and powders. "Keep skin clean and dry "Eat healthy well balanced meals "Exercise daily IF YOU SEE ANY OF THESE SYMPTOMS WHILE IN THE HOSPITAL - TELL YOUR NURSE IMMEDIATELY. IF YOU SEE ANY OF THESE SYMPTOMS WHILE AT HOME OR HAVE ANY QUESTIONS OR CONCERNS ABOUT PRESSURE ULCERS - CALL YOUR PRIMARY DOCTOR IMMEDIATELY. Addendum: 06/13/21 at 1352 by Camilla Russell RN Amended: Links added.
--- NOTE | 2021-06-13 14:46 | NUR ---
Wound care did not leave any honey for patients sacral wound
--- NOTE | 2021-06-13 14:46 | NUR ---
Angio to come to bedside to do ultrasound to evaluate for thoracentesis.
--- NOTE | 2021-06-13 15:21 | NUR ---
Initial: Pt admitted dx BUSTER Gale, metastatic squamous cell CA per EMR. Pt has a stage III coccyx wound per WOC. Current PO intake of ~75-100% heart healthy and carb controlled diet, partially meeting nutritional needs. Pt could benefit from Lisandro shakes BIDBD for increased calories/protein for wound healing; RN order active, dietary aware. LBM 06/11. Will continue to monitor. Recommendations: 1. Continue heart healthy and carb control diet as tolerated 2. Lisandro shakes BIDBD 3. Bowel care per Rx 4. Scaled wt this admit, subsequent weekly wt Addendum: 06/13/21 at [address] Amended: Links added. Addendum: 06/13/21 at [address] [facility] has reviewed and approves of this note.
--- NOTE | 2021-06-13 15:39 | NUR ---
IR to bedside to scan patient for left side thoracentesis. Ultrasound imaging obtained, revealing not enough fluid to drain at this time. Patient chatty and in stable condition.
--- NOTE | 2021-06-13 15:57 | NUR ---
Attempted to call Dr. Ruth regarding patients old chest tube site and what dressing he would prefer over it and if he would like the sutures removed. No answer, left message.
[2021-06-13 16:18] VITALS: BP 103/65
[2021-06-13] MEDS ORDERED: JUVEN Smoothie Arginine/Glut./Ca2+Bmb (Juven 19.3pkt) 240ml cup PO SCH (17:30)
[2021-06-13 18:00] VITALS: BP 105/63
--- NOTE | 2021-06-13 18:33 | NUR ---
Problems reprioritized. Patient report given, questions answered & plan of care reviewed with Davy PORTILLO.
[2021-06-13] MEDS: JUVEN Shake w/Arg/Glut/Ca2+Bmb (Juven 19.3gm) pkt 240ml PO SCH (18:53)
[2021-06-13] MEDS: lactobacillus rhamnosus 10,000 MMU CELLS/CAPSULE PO SCH (19:36)
[2021-06-13] MEDS: benzocaine/menthol oral lozeng 1 EACH BOX MM PRN (19:37)
[2021-06-13] MEDS: latanoprost 0.005% 2.5ml ophthalmic drops EACHEYE SCH (19:42)
[2021-06-13 22:00] VITALS: BP 93/56
--- NOTE | 2021-06-13 23:00 | NUR ---
placed colostomy bag over left axillary chest tube sites. xeroform over open areas. noted pt continually leaking clear yellow fluid. when patient coughs, air and liquid spray out of slit. drainage device intact.
[2021-06-13] MEDS: CefTRIAXone/D5W-Rocephin 1gm 50 ML IV SCH (23:27)
[2021-06-14 01:58] VITALS: BP 98/66
--- NOTE | 2021-06-14 03:08 | NUR ---
paged RT to switch patient to towbridger. sats maintaining 85-89% on HF/NRB even turned on her right side. notified Dr. Meza. no further order. Addendum: 06/14/21 at 0627 by Davy Glover RN omit this note. wrong patient
--- NOTE | 2021-06-14 06:26 | NUR ---
Received report from Davy PORTILLO
[2021-06-14 06:32] VITALS: BP 92/59
--- NOTE | 2021-06-14 06:32 | NUR ---
reported to days. noted colostomy bag placed over chest tube site with xeroform draining well but with a lot of air to "burp" frequently. has drained 200ml so far in 6 hours.
[2021-06-14] MEDS: levoFLOXACIN-Levaquin 500mg/D5 100 ML IV SCH (07:10)
[2021-06-14] MEDS: dexamethasone 4mg/ml inj IV SCH (07:10)
[2021-06-14] MEDS: finasteride 5mg tablet PO SCH (07:42)
[2021-06-14] MEDS: lactobacillus rhamnosus 10,000 MMU CELLS/CAPSULE PO SCH (07:42)
[2021-06-14] MEDS: atorvastatin 10mg tablet PO SCH (07:42)
[2021-06-14] MEDS: terazosin 5mg capsule PO SCH (07:43)
[2021-06-14] MEDS: amiodarone 200mg tablet PO SCH (07:43)
[2021-06-14] MEDS: timolol 0.5% ophthalmic solution 5ml bottle EACHEYE SCH (07:58)
[2021-06-14] MEDS: REMDESIVIR 100 MG in NS 100ml IVPB IV SCH (08:00)
[2021-06-14] MEDS: K and/or MAG REPLACEMENT MC SCH (08:00)
[2021-06-14] MEDS: normal saline 1000ml 1,000 ML IV SCH (08:50)
[2021-06-14] MEDS: JUVEN Shake w/Arg/Glut/Ca2+Bmb (Juven 19.3gm) pkt 240ml PO SCH (09:51)
[2021-06-14] MEDS ORDERED: DEC4T PO (09:56)
[2021-06-14 10:00] VITALS: BP 101/59
--- NOTE | 2021-06-14 11:06 | NUR ---
Case management to set patient up with primary care and a referall for hematology/oncology prior to dc home.
--- NOTE | 2021-06-14 12:10 | NUR ---
Sent page to case management to discuss if home health is available and or an option for him since he lives in [place]. Addendum: 06/14/21 at 1212 by Joanne Razo RN per cm no home health in [place]
--- NOTE | 2021-06-14 14:39 | NUR ---
Malnutrition assessment: Pt PO intake ~75-100% of heart healthy and carb controlled diet and 100% PO intake of ONS, meeting nutritional needs. Current pt wt not scaled; no scaled wt hx per EMR. Pt w/ mildly weak muscle activity per EMR. Pt w/ bilateral lower extremity +1 pitting edema. Pt does not meet minimum malnutrition criteria at this time. Will continue to monitor. Addendum: 06/14/21 at 1439 by Delta Aragon - K9 [address] RD Amended: Links added. Addendum: 06/14/21 at [address] I have reviewed and agree with note by [address]
--- NOTE | 2021-06-14 16:20 | NUR ---
Patient discharged to home, medications sent to pharmacy. 22 gauge IV removed from left hand, no complications. This RN gave all instructions plus materials for dressing changes at home. Also gave patient opportunity to ask questions. All information was given and understood by patient. Discharged in private vehicle.
== END 2021-06-14 14:50 | disposition home or self-care (01) | DRG 177 ==
LOC: ER 09:51 → ED HOLD 14:50 → ORTHO 4S 06-11 09:30
PROVIDERS: ADMIT Internal Medicine; ATTEND Internal Medicine
PROC: BW03ZZZ Plain Radiography of Chest (ICD-10-PCS; principal; 2021-06-10)
PROC: BW03ZZZ Plain Radiography of Chest (ICD-10-PCS; 2021-06-11)
PROC: BW03ZZZ Plain Radiography of Chest (ICD-10-PCS; 2021-06-12)
DX: U07.1 COVID-19 (principal); J96.00 Acute respiratory failure, unspecified whether with hypoxia or hypercapnia; N17.9 Acute kidney failure, unspecified; C34.90 Malignant neoplasm of unspecified part of unspecified bronchus or lung; E87.1 Hypo-osmolality and hyponatremia; J90 Pleural effusion, not elsewhere classified; I48.91 Unspecified atrial fibrillation; N40.0 Benign prostatic hyperplasia without lower urinary tract symptoms; N18.9 Chronic kidney disease, unspecified; R53.83 Other fatigue; I95.9 Hypotension, unspecified; E78.5 Hyperlipidemia, unspecified; E10.22 Type 1 diabetes mellitus with diabetic chronic kidney disease; E87.5 Hyperkalemia; I12.9 Hypertensive chronic kidney disease with stage 1 through stage 4 chronic kidney disease, or unspecified chronic kidney disease; I48.0 Paroxysmal atrial fibrillation
CPT/HCPCS: 36415; 71045; 80048; 80053; 81001; 83605; 83735; 83880; 84132; 84145; 84484; 85025; 85379; 87040; 87077; 87088; 87186; 87635; 93005; 96361; 96365; 97110; 97116; 97161; 97530; 99285; C9803; G0378; J0696; J1100; J1956; J3490; J7030; J7040; J7120; P9047